=== PATIENT | male | born 1970 | race Caucasian/White ===

== ENCOUNTER 2017-10-14 17:15 | Emergency (ER) | payer MEDICARE, OTHER ==
[~2017-10-14] VITALS: Ht 182.9 cm; Wt 134.7 kg
[~2017-10-14 17:15] MED LIST: AMBIEN10 MG PO; ASPIRIN EC325 MG PO; ATENOLOL-CHLOR1 EAC1 PO; ATIVAN1 MG PO; ATORVASTATIN CA20 MG PO; CLOZAPINE100 MG PO; FAMOTIDINE20 MG PO; FENOFIBRATE134 MG PO; GLUCOPHAGE1000 MG PO; HUMULIN 70100 UNIT/3 SUB-Q; HYDROXYZINE HCL50 MG PO; JANUMET 50-1,01 EACH PO; JANUMET XR 50-1 EAC1 PO; LAMOTRIGINE25 MG PO; LATUDA80 MG PO; LIPITOR20 MG PO; LOSARTAN POTASS50 MG PO; LOVAZA1 GM PO; MINIPRESS1 MG PO; NICOTINE PATCH1 EA TD; NOVOLIN 70100 UNITS/ SUB-Q; NOVOLIN R100 UNIT/1 INJ; OMEGA-3 ACID ETH1 GM PO; PAIN RELIEF500 M1 PO; PRINIVIL10 MG PO; TRAZODONE HCL100 MG PO; VENTOLIN HFA18 GM INH; VITAMIN D250000 UNIT PO
[2017-10-14] MEDS ORDERED: TRULICITY1.5 MG/0.5 SUB-Q (17:36)
[2017-10-14] MEDS ORDERED: NOVOLOG MI100 UNIT/1 SUB-Q (17:38)
[2017-10-14] MEDS ORDERED: ARIPIPRAZOLE2 MG PO (17:40)
[2017-10-14] MEDS ORDERED: VITAMIN D350000 UNIT PO (17:41)
[2017-10-14] MEDS ORDERED: LOSARTAN POTASS50 MG PO (17:42)
[2017-10-14] MEDS ORDERED: DOCUSATE SODIU100 MG PO (17:43)
[2017-10-14] MEDS ORDERED: FLUVOXAMINE MA100 MG PO (17:44)
[2017-10-14] MEDS ORDERED: GLUCOPHAGE1000 MG PO (17:46)
[2017-10-14] MEDS ORDERED: FERROUS SULFAT325 MG PO (17:47)
[2017-10-14] MEDS ORDERED: ARIPIPRAZOLE5 MG PO (17:49)
[2017-10-14] MEDS ORDERED: CHLORTHALIDONE25 MG PO (17:51)
[2017-10-14] MEDS ORDERED: ATENOLOL25 MG PO (17:52)
== END 2017-10-14 19:55 | disposition home or self-care (01) ==
LOC: ED 17:15
DX: F20.9 Schizophrenia, unspecified (principal); E11.9 Type 2 diabetes mellitus without complications; I10 Essential (primary) hypertension; F17.200 Nicotine dependence, unspecified, uncomplicated; Z88.8 Allergy status to other drugs, medicaments and biological substances; Z79.4 Long term (current) use of insulin; Z79.899 Other long term (current) drug therapy
CPT/HCPCS: 80053; 80176; 81001; 84443; 85025; 99283; G0480

== ENCOUNTER 2018-06-25 19:07 | Emergency (ER) | payer MEDICARE, OTHER ==
[~2018-06-25] VITALS: Ht 182.9 cm; Wt 134.7 kg
[~2018-06-25 19:07] MED LIST changes: +ARIPIPRAZOLE2 MG PO; +ARIPIPRAZOLE5 MG PO; +ATENOLOL25 MG PO; +CHLORTHALIDONE25 MG PO; +DOCUSATE SODIU100 MG PO; +FERROUS SULFAT325 MG PO; +FLUVOXAMINE MA100 MG PO; +NOVOLOG MI100 UNIT/1 SUB-Q; +TRULICITY1.5 MG/0.5 SUB-Q; +VITAMIN D350000 UNIT PO
--- OUTSIDE RECORDS SUMMARY | 2018-06-25 19:10 | XMS ---
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 Events No recent Security Events currently on file CRITERIA MET - Group Notification - [facility] MAYELIN MARTINEZ [facility] PHONE: Unknown ANDRZEJ ENCINAS [facility] SHALONDA PHONE: Unknown Boo Patton MD PHONE: Unknown JOSE Mental Health Provider 07/01/2016-Current PHONE: [phone] DAVE HASSAN Primary Care 03/07/2013-Current PHONE: Unknown Guidelines Source: [facility] Guidelines Date: 02/03/2018 Additional Information: Enrolled in Assertive Community Treatment program with [employer].\T\nbs; Please contact Lesley Kyle @ [facility] regarding mental health concerns. [phone] Care History Behavioral 09/13/2017 [facility] Enrolled in the Assertive Community Treatment program at [facility].\T\nbsp; Contact Lesley Kyle with behavioral health concerns. [phone] E.D. VISIT COUNT (12 MO.) [address] [facility] [facility] TOTAL 5 NOTE: Visits indicate total known visits. ED/C VISIT TRACKING (12 MO.) 06/25/2018 19:08 [facility] [place] TYPE: Emergency COMPLAINT: - MEDICAL CLEARANCE 05/02/2018 15:10 [facility] [place] TYPE: Emergency DIAGNOSES: - Schizoaffective disorder, unspecified - MENTAL HEALTH 04/29/2018 09:16 [facility] [place] TYPE: Emergency DIAGNOSES: - SEIZURE - Personal history of other mental and behavioral disorders - Brief psychotic disorder 04/25/2018 18:08 [facility] [place] TYPE: Emergency COMPLAINT: - MEDICAL CLERANCE DIAGNOSES: - Other parts counterman (current) drug therapy - Allergy status to other drugs, medicaments and biological substances status - Essential (primary) hypertension - Personal history of nicotine dependence - parts counterman (current) use of insulin - Type 2 diabetes mellitus without complications - Encounter for other general examination - Schizoaffective disorder, unspecified 10/14/2017 17:[address] [facility] [place] TYPE: Emergency COMPLAINT: - MEDICAL CLEARANCE DIAGNOSES: - Nicotine dependence, unspecified, uncomplicated - Schizophrenia, unspecified - Other parts counterman (current) drug therapy - prison (current) use of insulin - Essential (primary) hypertension - Encounter for other general examination - Allergy status to other drugs, medicaments and biological substances status - Type 2 diabetes mellitus without complications INPATIENT VISIT TRACKING (12 MO.) No inpatient visits to display in this time frame [email or web address]
--- NOTE | 2018-06-26 13:56 | EKG ---
[facility] [address] [facility] [place] [address] Signed Normal sinus rhythm Left axis deviation Abnormal ECG When compared with ECG of 10-JUL-2016 11:02, Vent. rate has decreased BY [address] no longer depressed in Lateral leads Confirmed by STACEY GILLILAND MD ([id number]) on 06/26/2018 1:56:33 PM Electronically Signed By: STACEY GILLILAND MD 06/26/18 1356 PATIENT NAME: BRUNO HEBERT Electrocardiogram DATE OF : 74 PHYSICIAN: STACEY GILLILAND MD REPORT #: [id number] REPORT IS CONFIDENTIAL AND NOT TO BE RELEASED WITHOUT AUTHORIZATION
== END 2018-06-26 16:28 | disposition home or self-care (01) ==
LOC: ED 19:07
DX: Z00.8 Encounter for other general examination (principal); E11.9 Type 2 diabetes mellitus without complications; I10 Essential (primary) hypertension; F25.0 Schizoaffective disorder, bipolar type; F17.200 Nicotine dependence, unspecified, uncomplicated; Z88.8 Allergy status to other drugs, medicaments and biological substances; Z79.899 Other long term (current) drug therapy; Z79.4 Long term (current) use of insulin
CPT/HCPCS: 80053; 80176; 81001; 84443; 85025; 93005; 93010; 99284-25; G0480

== ENCOUNTER 2019-03-05 00:23 | Emergency (ER) | payer MEDICARE, OTHER ==
[~2019-03-05] VITALS: Ht 182.9 cm; Wt 134.7 kg
--- OUTSIDE RECORDS SUMMARY | ~2019-03-05 | XMS | Clinical Summary ---
Demographics + + + | Address | [address] | | | [place] [address] | + + + | Home Phone | | + + + | Preferred Language | Unknown | + + + | Marital Status | Single | + + + | Gnosticist Affiliation | Unknown | + + + | Race | Unknown | + + + | Ethnic Group | Unknown | + + + Author + + + | Author | [facility] | | | and [place] | + + + | Organization | [facility] | | | and [place] | + + + | Address | Unknown | + + + | Phone | Unavailable | + + + Support + + +---------+ + | Name | Relationship | Address | Phone | + + +---------+ + | Rachna Nur | ECON | Unknown | | + + +---------+ + Care Team Providers + +------+ + | Care Government Contracts Manager Name | Role | Phone | + +------+ + | Sara Olivo | PCP | | | PA-C | | | + +------+ + Allergies + + + + + + | Active Allergy | Reactions | Severity | Noted | Comments | | | | | Date | | + + + + + + | Amoxicillin | | | | | + + + + + + | Haloperidol | | | | Made me harjeetedenilsony | + + + + + + | Lisinopril | | | | | + + + + + + | [place] | | | | Made me scattered | + + + + + + | Olanzapine | | | | | + + + + + + | Quetiapine | | | | | + + + + + + | Valproic Acid | Rash | Medium | 12//20 | | | | | | 18 | | + + + + + + Medications + + + +---------+------+------+-------+ | Medication | Sig | Dispensed | Refills | Star | End | Statu | | | | | | t | Date | s | | | | | | Date | | | + + + +---------+------+------+-------+ | losartan (COZAAR) | Take 1 tablet by | 90 | 1 | 08/1 | | Activ | | 50 mg tablet | mouth Daily. | tablet | | 4/20 | | e | | | | | | 18 | | | + + + +---------+------+------+-------+ | ARIPiprazole | Take 10 mg by mouth | | 0 | | | Activ | | (ABILIFY) 10 mg | Daily. | | | | | e | | tablet | | | | | | | + + + +---------+------+------+-------+ | aspirin 81 MG EC | Take 81 mg by mouth | | 0 | | | Activ | | tablet | Daily. | | | | | e | + + + +---------+------+------+-------+ | atenolol | Take 50 mg by mouth | | 0 | | | Activ | | (TENORMIN) 50 mg | Daily. | | | | | e | | tablet | | | | | | | + + + +---------+------+------+-------+ | chlorthalidone 25 | Take 25 mg by mouth | | 0 | | | Activ | | mg tablet | Daily. | | | | | e | + + + +---------+------+------+-------+ | cloZAPine | Take 400 mg by mouth | | 0 | | | Activ | | (CLOZARIL) 200 MG | 2 times daily. 200 | | | | | e | | tablet | in AM 230 in PM | | | | | | + + + +---------+------+------+-------+ | fenofibrate | Take 160 mg by mouth | | 0 | | | Activ | | micronized (LOFIBRA) | daily (with | | | | | e | | 134 mg capsule | breakfast). | | | | | | + + + +---------+------+------+-------+ | fluvoxaMINE | Take 100 mg by mouth | | 0 | | | Activ | | (LUVOX) 100 mg | nightly. | | | | | e | | tablet | | | | | | | + + + +---------+------+------+-------+ | lamoTRIgine | Take 200 mg by mouth | | 0 | | | Activ | | (LAMICTAL) 100 mg | 2 times daily. | | | | | e | | tablet | | | | | | | + + + +---------+------+------+-------+ | metFORMIN | Take 1,000 mg by | | 0 | | | Activ | | (GLUCOPHAGE) 1000 MG | mouth 2 times daily | | | | | e | | tablet | (with breakfast & | | | | | | | | dinner). | | | | | | + + + +---------+------+------+-------+ | insulin - MIX | Inject 41 Units | | 0 | | | Activ | | insulin aspart | under the skin 2 | | | | | e | | protamine-insulin | times daily (with | | | | | | | aspart 70/30 | breakfast & dinner). | | | | | | | (NOVOLOG MIX 70/30 | | | | | | | | FLEXPEN) 100 | | | | | | | | units/mL PEN | | | | | | | + + + +---------+------+------+-------+ | RaNITidine HCl | Take 75 mg by mouth | | 0 | | | Activ | | (RANITIDINE 75 PO) | 2 times daily. | | | | | e | + + + +---------+------+------+-------+ | dulaglutide | Inject 1.5 mg under | | 0 | | | Activ | | (TRULICITY) 1.5 | the skin Once a | | | | | e | | mg/0.5 mL injection | week. | | | | | | + + + +---------+------+------+-------+ | ergocalciferol | Take 50,000 Units by | | 0 | | | Activ | | (VITAMIN D-2) 50,000 | mouth Once a week. | | | | | e | | units capsule | | | | | | | + + + +---------+------+------+-------+ | fish oil 1,000 mg | Take 2,000 mg by | | 0 | | | Activ | | capsule | mouth 2 times daily. | | | | | e | + + + +---------+------+------+-------+ | docusate sodium | Take 100 mg by mouth | | 0 | | | Activ | | (DOK) 100 mg capsule | 2 times daily. | | | | | e | + + + +---------+------+------+-------+ | Ascorbic Acid | Take 1 tablet by | | 0 | 01/2 | | Activ | | (VITAMIN C) 250 MG | mouth 2 times daily. | | | 820 | | e | | tablet | | | | 19 | | | + + + +---------+------+------+-------+ | mirtazapine | Take 30 mg by mouth | | 0 | | | Activ | | (REMERON) 15 MG | 2 times daily. | | | | | e | | tablet | | | | | | | + + + +---------+------+------+-------+ | ARIPiprazole | Inject 882 mg into | | 0 | | | Activ | | lauroxil (ARISTADA) | the muscle Once | | | | | e | | 882 mg/3.2 mL ER | every six weeks. | | | | | | | injection | | | | | | | + + + +---------+------+------+-------+ | LORazepam (ATIVAN) | Take 1 mg by mouth | | 0 | | | Activ | | 1 mg tablet | Twice daily as | | | | | e | | | needed. | | | | | | + + + +---------+------+------+-------+ | divalproex | Take 500 mg by mouth | | 0 | | | Activ | | (DEPAKOTE) [address] | 2 times daily. | | | | | e | | tablet | | | | | | | + + + +---------+------+------+-------+ | atorvaSTATin | Take 10 mg by mouth | | 0 | | | Activ | | (LIPITOR) 10 mg | nightly. 1 tablet | | | | | e | | tablet | every night | | | | | | + + + +---------+------+------+-------+ | ferrous sulfate | Take 325 mg by mouth | | 0 | 07/2 | | Activ | | 325 mg tablet | 2 times daily. | | | 3/20 | | e | | | | | | 18 | | | + + + +---------+------+------+-------+ | lamoTRIgine | Take 25 mg by mouth | | 0 | | | Activ | | (LAMICTAL) 25 mg | nightly as needed. | | | | | e | | tablet | | | | | | | + + + +---------+------+------+-------+ Active Problems + + + | Problem | Noted Date | + + + | Coronary artery disease involving [place] coronary artery of | 06/22/2018 | | [place] heart without angina pectoris | | + + + + + | Overview: CUSTOMER ACCOUNT COORDINATOR RCA | | CUSTOMER ACCOUNT COORDINATOR distal Cx. Severe stenosis OM 1 | + + + + + | LAFB (left anterior fascicular block) | 06/22/2018 | + + + | Uncontrolled type 2 diabetes mellitus with complication | | + + + | Hyperlipidemia, mixed | | + + + | Hypertension, essential | | + + + | Vitamin D deficiency | | + + + | Hypogonadism, male | | + + + | Hyponatremia | | + + + | Morbid obesity | | + + + | Sleep apnea | | + + + | Elevated AST (SGOT) | | + + + | Diabetic nephropathy | | + + + | Chest pain | | + + + + + | Overview: Stress test 03/14/2018 shows modest ischemia | | associated with a small infarct in the inferior wall, EKG portion | | of Lexiscan cardiolite stress test with no diagnostic EKG | | finding to suggest Lexiscan-induced ischemia. Neymar Gutierrez | | .Left heart cath on 04/06/2018, shows severe 2 vessel coronary | | artery disease, chronic total occlusion to the proximal RCA and | | proximal LCx, and 90% stenosis to the proximal OM, | | collateralization; evidence of a ypsh-yw-cxbun collateralization | | from the distal LAD to the distal PDA, there is a right dominate | | circulation, normal LV systolic function with an EF of 70%, | | systemic blood pressure is normal, there was successful | | hemostasis with a TR hemostatic band, plan is Coronary | | revascularization with PCI, case was discussed with Dr. Oates | | Huy, interventionalists at [facility] in [place], | | [place], Signed by: Sneha Carson MD on | | 04/06/2018Echocardiogram on 04/04/2018, shows mild left atrial | | dilatation, normal left ventricular size, wall thickness and | | motion, preserved left ventricular systolic function, LVEF is | | 55%, normal valvular structure with a physiologic mild mitral | | valve regurgitation and trace tricuspid valve regurgitation, | | normal right-sided pressure, not well-visualized IVC, mild aortic | | root dilatation measuring 4.0 cm in diameter signed by Sneha | | Alli KHAN. | + + Immunizations + + + + | Name | Dates Previously Given | Next Due | + + + + | HEP A, 2 DOSE | 09/08/2016 | | | (ADULT) | | | + + + + | HEP B, 3 DOSE | 10/06/2016, 09/08/2016 | | | (ADULT) | | | + + + + | INFLUENZA PF 4Y OR | 01/19/2017 | | | >,QUAD DERIVED FROM | | | | TISS-CULT | | | + + + + | INFLUENZA PF | 04/14/2018 | | | QUAD(PED/ADOL/ADULT) | | | | ,PSKT or VIAL | | | + + + + | INFLUENZA TRIV | 02/07/2007, 03/11/2006, 03/24/2005 | | | W/PRES(PED/ADOL/ADUL | | | | T),MULTIDOSE | | | + + + + | INFLUENZA, | 03/10/2010 | | | UNSPECIFIED | | | | FORMULATION | | | + + + + | PNEUMOCOCCAL | 01/20/2009, 04/29/2005 | | | POLYSACCHARIDE | | | | 23-VALENT (PPSV23) | | | + + + + | PPD Test | 09/08/2016 | | + + + + | TDAP, (ADOL/ADULT) | 10/29/2014, 09/14/2005 | | + + + + Family History + + +------+ + | Medical History | Relation | Name | Comments | + + +------+ + | Brain cancer | Other | | | + + +------+ + | Heart disease | Other | | | + + +------+ + | Stroke | Other | | | + + +------+ + + +------+--------+ + | Relation | Name | Status | Comments | + +------+--------+ + | Other | | | | + +------+--------+ + Social History + + + +--------+------+ | Tobacco Use | Types | Packs/Day | Years | Date | | | | | Used | | + + + +--------+------+ | Current Every Day | Cigarettes | | | | | Smoker | | | | | + + + +--------+------+ + +---+---+---+ | Smokeless Tobacco: | | | | | Never Used | | | | + +---+---+---+ + + | Comments: 10-15 ciggattes a day | + + + + +---------+ + | Alcohol Use | Drinks/We | oz/Week | Comments | | | ek | | | + + +---------+ + | No | | | | + + +---------+ + + + + | Sex Assigned at | Date Recorded | | | | + + + | Not on file | | + + + + + + + | Job Start Date | Occupation | Industry | + + + + | Not on file | Not on file | Not on file | + + + + + + + + | Travel History | Travel Start | Travel End | + + + + + + | No recent travel history available. | + + Last Filed Vital Signs + + + + | Vital Sign | Reading | Time Taken | + + + + | Blood Pressure | 110/80 | 11/16/2018939 PDT | + + + + | Pulse | 72 | 11/16/2018939 PDT | + + + + | Temperature | 36.4 C (97.5 F) | 04/06/2018 1101 PST | + + + + | Respiratory Rate | 16 | 11/16/2018939 PDT | + + + + | Oxygen Saturation | 100% | 04/06/20181314 PST | + + + + | Inhaled Oxygen | - | - | | Concentration | | | + + + + | Weight | 140.5 kg (309 lb | 11/16/2018939 PDT | | | 11.9 oz) | | + + + + | Height | 180.3 cm (5' 11") | 11/16/2018939 PDT | + + + + | Body Mass Index | 43.2 | 11/16/2018939 PDT | + + + + Plan of Treatment +--------+---------+ + + + | Date | Type | Specialty | Care Team | Description | +--------+---------+ + + + | 03/23/ | Office | Cardiology | [place], | | | 2018 | Visit | | [facility] [address] | | | | | | [place], | | | | | | [place] [address] | | | | | | [phone] | | | | | | | | +--------+---------+ + + + + + + + + | Health Maintenance | Due Date | Last Done | Comments | + + + + + | Diabetic Eye Exam | | | | | | 0 | | | + + + + + | Diabetic Foot Exam | | | | | | 0 | | | + + + + + | Adult Annual | | | | | Wellness Visit | 8 | | | + + + + + | Statin Therapy | | | | | (optimal intensity) | 8 | | | + + + + + | Hemoglobin A1c | | 07/18/2018 | | | Screening | 9 | | | + + + + + | Vaccine: Influenza | | 04/14/2018, 01/19/2017, | | | (#1) | 9 | 03/10/2010, Additional history | | | | | exists | | + + + + + | Vaccine: | | 10/29/2014, 09/14/2005 | | | Dtap/Tdap/Td (3 - | 5 | | | | Td) | | | | + + + + + | Vaccine: | Completed | 01/20/2009, 04/29/2005 | | | Pneumococcal 19-64 | | | | | (PPSV23 only) Medium | | | | | Risk | | | | + + + + + Results Not on filefrom Last 3 Months Insurance + +--------+ +--------+ +---------+--------+ | Payer | Benefi | Subscriber | Effect | Phone | Address | Type | | | t Plan | ID | meghan | | | | | | / | | Dates | | | | | | Group | | | | | | + +--------+ +--------+ +---------+--------+ | MEDICARE | MEDICA | [id number] | 01/01/19 | [phone] | | Medica | | | RE | | 95-Pre | 5 | | re | | | PART A | | sent | | | | | | AND B | | | | | | + +--------+ +--------+ +---------+--------+ | [employer] | MODA | [id number] | 03/22/ | [phone] | | Medica | | MEDICAID HMO | HEALTH | | 2018-P | 1 | | id | | | MDCD | | resent | | | | | | [place]MO [place] | | | | | | + +--------+ +--------+ +---------+--------+ + +--------+ +--------+ + + | Guarantor Name | Accoun | Relation to | Date | Phone | Billing Address | | | t Type | Patient | of | | | | | | | | | | + +--------+ +--------+ + + | Jose Correa | Person | Self [birth year] | [address] | | | al/Fam | | 1970 | [phone] | [address] [place], | | | [place] | | | [address] (Home) | [place] [address] | + +--------+ +--------+ + + Advance Directives Patient has advance care planning documents on file. For more information, please contact:[facility] [place] [address]
--- OUTSIDE RECORDS SUMMARY | ~2019-03-05 | XMS | Clinical Summary ---
Demographics + + + | Address | [address] | | | [place] [address] | + + + | Home Phone | | + + + | Preferred Language | Unknown | + + + | Marital Status | Single | + + + | Samaritan Affiliation | Unknown | + + + | Race | Unknown | + + + | Ethnic Group | Unknown | + + + Author + + + | Author | [facility] | | | and [place] | + + + | Organization | [facility] | | | and [...] Team Providers + +------+ + | Care Inside Account Executive Name | Role | Phone | + [...] + + + + + + | [place] | | | | Made me scattered [...] + + | Coronary artery disease involving [place] coronary artery of | 06/22/2018 | | [place] heart without angina pectoris | | + + + + + | Overview: BIN PILER RCA | | BIN PILER distal Cx. Severe stenosis OM 1 | [...] OM, | | collateralization; evidence of a guyz-av-krnev collateralization | | from the distal LAD [...] Dr. Oates | | Huy, interventionalists at [facility] in [place], | | [place], Signed by: Sneha Carson MD on | [...] | 2018 | Visit | | [facility] [address] | | | | | | [place], | | | | | | [place] [address] | | | | | | [phone] | | | | | | | [...] +--------+ +---------+--------+ | MEDICARE | MEDICA | [id number] | 01/01/19 | [phone] | | Medica | | | RE | | 95-Pre | 5 | | re | | | PART A | | sent | | | | | | AND B | | | | | | + +--------+ +--------+ +---------+--------+ | [employer]AN | MODA | [id number] | 03/22/ | [phone] | | Medica [...] Self | [birth year] | [address] | | | al/Fam | | 1970 | [phone] | [address] [place], | | | [place] | | | [address] (Home) | [place] [address] | + +--------+ +--------+ + + Advance Directives Patient has advance care planning documents on file. For more information, please contact:[facility] and [facility] [place] [address]
--- OUTSIDE RECORDS SUMMARY | 2019-03-05 00:26 | XMS ---
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 PHONE: Unknown ANDRZEJ ENCINAS [facility] Noreen LIZ PHONE: Unknown Boo Patton MD PHONE: Unknown [facility] Mental Health Provider 07/01/2016-Current PHONE: [phone] DAVE HASSAN Primary Care 03/07/2013-Current PHONE: Unknown Guidelines Source: [facility] Guidelines Date: 02/03/2018 Additional Information: Enrolled in Assertive Community Treatment program with [facility].\T\nbs; Please contact Lesley Kyle @ [facility] regarding mental health concerns. [phone] Care History Behavioral 09/13/2017 [facility] Enrolled in the Assertive Community Treatment program at [facility].\T\nbsp; Contact Lesley Kyle with behavioral health concerns. [phone] E.D. VISIT COUNT (12 MO.) [address] [place] TOTAL 5 NOTE: Visits indicate total known visits. ED/UCC VISIT TRACKING (12 MO.) 03/05/2019 00:24 [facility] [place] TYPE: Emergency COMPLAINT: - MEDICATION ISSUES 06/25/2018 19:08 [facility] [place] TYPE: Emergency COMPLAINT: - MEDICAL CLEARANCE DIAGNOSES: - 1 Type 2 diabetes mellitus without complications - Nicotine dependence, unspecified, uncomplicated - Encounter for other general examination - Other care home (current) drug therapy - jail (current) use of insulin - Essential (primary) hypertension - Allergy status to oth drug/meds/biol subst status - Schizoaffective disorder, bipolar type 05/02/2018 15:10 [facility] [place] TYPE: Emergency DIAGNOSES: - Schizoaffective disorder, unspecified - MENTAL HEALTH 04/29/2018 09:16 [facility] [place] TYPE: Emergency DIAGNOSES: - SEIZURE - Personal history of other mental and behavioral disorders - Brief psychotic disorder 04/25/2018 18:08 [facility] [place] TYPE: Emergency COMPLAINT: - MEDICAL CLERANCE DIAGNOSES: - Other care home (current) drug therapy - Allergy status to oth drug/meds/biol subst status - Essential (primary) hypertension - Personal history of nicotine dependence - jail (current) use of insulin - 1 Type 2 diabetes mellitus without complications - Encounter for other general examination - Schizoaffective disorder, unspecified INPATIENT VISIT TRACKING (12 MO.) No inpatient visits to display in this time frame [id number]
== END 2019-03-05 13:54 | disposition home or self-care (01) ==
LOC: ED 00:23
DX: R45.1 Restlessness and agitation (principal); E11.9 Type 2 diabetes mellitus without complications; I10 Essential (primary) hypertension; F25.9 Schizoaffective disorder, unspecified; Z88.8 Allergy status to other drugs, medicaments and biological substances; Z79.899 Other long term (current) drug therapy; Z79.4 Long term (current) use of insulin
CPT/HCPCS: 80053; 80176; 81001; 84443; 85025; 99284; G0480; J1815

== ENCOUNTER 2019-05-26 12:41 | Emergency (ER) | payer MEDICARE, OTHER ==
[~2019-05-26] VITALS: Ht 182.9 cm; Wt 134.7 kg
--- OUTSIDE RECORDS SUMMARY | 2019-05-26 12:44 | XMS ---
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 Events No recent Security Events currently on file CRITERIA MET - Group Notification - [facility] Guidelines - [facility] JERMAINE CONTRERAS Physician 06/28/2018-Current PHONE: [phone] MAYELIN [facility] PHONE: Unknown ANDRZEJ ENCINAS [facility] Noreen LIZ PHONE: Unknown Boo Patton MD PHONE: Unknown [facility] Mental Health Provider 07/01/2016-Current PHONE: [phone] DAVE HASSAN Primary Care 03/07/2013-Current PHONE: Unknown Guidelines Source: [facility] Guidelines Date: 02/03/2018 Additional Information: Enrolled in Assertive Community Treatment program with [facility].\T\nbs; Please contact Lesley Kyle @ [facility] regarding mental health concerns. [phone] Care History Behavioral 09/13/2017 [facility] Enrolled in the Assertive Community Treatment program at [facility].\T\nbsp; Contact Lesley Kyle with behavioral health concerns. [phone] E.D. VISIT COUNT (12 MO.) 3 [facility] [place] TOTAL 3 NOTE: Visits indicate total known visits. ED/UCC VISIT TRACKING (12 MO.) 05/26/2019 12:41 [facility] [place] TYPE: Emergency COMPLAINT: - HIGH BLOOD SUGAR 03/05/2019 00:24 [facility] [place] TYPE: Emergency COMPLAINT: - MEDICATION ISSUES DIAGNOSES: - Allergy status to oth drug/meds/biol subst status - Essential (primary) hypertension - 1 Type 2 diabetes mellitus without complications - Other fdc (current) drug therapy - Restlessness and agitation - Schizoaffective disorder, unspecified - parts counterman (current) use of insulin 06/25/2018 19:[address] [facility] [place] TYPE: Emergency COMPLAINT: - MEDICAL CLEARANCE DIAGNOSES: - 1 Type 2 diabetes mellitus without complications - Nicotine dependence, unspecified, uncomplicated - Encounter for other general examination - Other parts counterman (current) drug therapy - senior care (current) use of insulin - Essential (primary) hypertension - Allergy status to oth drug/meds/biol subst status - Schizoaffective disorder, bipolar type INPATIENT VISIT TRACKING (12 MO.) No inpatient visits to display in this time frame [email or web address]
[2019-05-26] MEDS ORDERED: LACTULOSE10 GM/15 M PO (14:19)
== END 2019-05-26 14:39 | disposition home or self-care (01) ==
LOC: ED 12:41
DX: E11.65 Type 2 diabetes mellitus with hyperglycemia (principal); E72.20 Disorder of urea cycle metabolism, unspecified; I10 Essential (primary) hypertension; F25.9 Schizoaffective disorder, unspecified; F17.200 Nicotine dependence, unspecified, uncomplicated; Z88.8 Allergy status to other drugs, medicaments and biological substances; Z79.899 Other long term (current) drug therapy; Z79.84 Long term (current) use of oral hypoglycemic drugs
CPT/HCPCS: 80053; 82140; 85025; 85610; 85730; 99284; J7030

== ENCOUNTER 2019-06-10 08:18 | Emergency (ER) | payer MEDICARE, OTHER ==
[~2019-06-10] VITALS: Ht 182.9 cm; Wt 127.0 kg
[~2019-06-10 08:18] MED LIST changes: +LACTULOSE10 GM/15 M PO
--- OUTSIDE RECORDS SUMMARY | 2019-06-10 08:20 | XMS ---
PreManage Notification: BRUNO HEBERT Security Seat Nailer Events No recent Security Events currently on file CRITERIA MET - Group Notification - [facility] - Has Care Guidelines - PDMP - [facility] - 2 Visits in 30 Days CARE PROVIDERS JERMAINE CONTRERAS 06/28/2018-Current PHONE: [phone] MAYELIN LONDON Primary Care Current KATE PHONE: Unknown ANDRZEJ ENCINAS Primary Care Noreen LIZ PHONE: Unknown Boo Patton MD PHONE: Unknown [facility] Mental Health Provider 07/01/2016-Current PHONE: [phone] DAVE HASSAN Primary Care 03/07/2013-Current PHONE: Unknown Guidelines Source: [facility] Guidelines Date: 05/29/2019 Additional Information: Enrolled in Assertive Community Treatment program with [facility].\T\[facility]; Please contact [facility] regarding mental health concerns. [place] Office:\T\nbsp; Care History Behavioral 09/13/2017 [facility] Enrolled in the Assertive Community Treatment program at [facility].\T\[facility]; Contact Lesley Kyle with behavioral health concerns. [phone] E.Michael. VISIT COUNT (12 MO.) [address] [facility] TOTAL 4 NOTE: Visits indicate total known visits. ED/UCC VISIT TRACKING (12 MO.) 06/10/2019 08:19 [facility] [place] TYPE: Emergency COMPLAINT: - POSS HEART ATTACK 05/26/2019 12:41 [facility] [place] TYPE: Emergency COMPLAINT: - HIGH BLOOD SUGAR DIAGNOSES: - Disorder of urea cycle metabolism, unspecified - 1 Type 2 diabetes mellitus with hyperglycemia - Other terminal gauger (current) drug therapy - 1 Type 2 diabetes mellitus with hyperglycemia - Schizoaffective disorder, unspecified - Disorientation, unspecified - Allergy status to oth drug/meds/biol subst status - Essential (primary) hypertension - Nicotine dependence, unspecified, uncomplicated - custodial (current) use of oral hypoglycemic drugs 03/05/2019 00:24 [facility] [place] TYPE: Emergency COMPLAINT: - MEDICATION ISSUES DIAGNOSES: - Allergy status to oth drug/meds/biol subst status - Essential (primary) hypertension - 1 Type 2 diabetes mellitus without complications - Other terminal gauger (current) drug therapy - Restlessness and agitation - Schizoaffective disorder, unspecified - exterminator termite (current) use of insulin 06/25/2018 19:08 [facility] [place] TYPE: Emergency COMPLAINT: - MEDICAL CLEARANCE DIAGNOSES: - 1 Type 2 diabetes mellitus without complications - Nicotine dependence, unspecified, uncomplicated - Encounter for other general examination - Other terminal gauger (current) drug therapy - custodial (current) use of insulin - Essential (primary) hypertension - Allergy status to oth drug/meds/biol subst status - Schizoaffective disorder, bipolar type INPATIENT VISIT TRACKING (12 MO.) No inpatient visits to display in this time frame [id number]
[2019-06-10] MEDS ORDERED: HYDROXYZINE HCL25 MG PO (10:34)
--- NOTE | 2019-06-10 18:22 | EKG ---
[facility] [address] [place], [place] [address] Signed Normal sinus rhythm Left axis deviation Abnormal ECG When compared with ECG of 25-JUN-2018 20:31, No significant change was found Confirmed by BECKY ACUÑA MD ([id number]) on 06/10/2019 6:22:47 PM Electronically Signed By: BECKY ACUÑA MD 06/10/191821 PATIENT NAME: ANUPBRUNO Electrocardiogram DATE OF : 74 PHYSICIAN: BECKY ACUÑA MD REPORT #: [id number] REPORT IS CONFIDENTIAL AND NOT TO BE RELEASED WITHOUT AUTHORIZATION
== END 2019-06-10 10:56 | disposition home or self-care (01) ==
LOC: ED 08:18
DX: F41.9 Anxiety disorder, unspecified (principal); F25.9 Schizoaffective disorder, unspecified; E11.9 Type 2 diabetes mellitus without complications; I10 Essential (primary) hypertension; F17.200 Nicotine dependence, unspecified, uncomplicated; Z88.8 Allergy status to other drugs, medicaments and biological substances; Z79.899 Other long term (current) drug therapy; Z79.84 Long term (current) use of oral hypoglycemic drugs
CPT/HCPCS: 80053; 84484; 85025; 93005; 93010; 99285-25; 99406; J7030

== ENCOUNTER 2019-06-15 04:04 | Emergency (ER) | payer MEDICARE, OTHER ==
[~2019-06-15] VITALS: Ht 182.9 cm; Wt 127.0 kg
[~2019-06-15 04:04] MED LIST changes: +HYDROXYZINE HCL25 MG PO
--- OUTSIDE RECORDS SUMMARY | 2019-06-15 04:06 | XMS ---
PreManage Notification: BRUNO HEBERT Security Sawmill Tally Clerk Events No recent Security Events currently on file CRITERIA MET - Group Notification - [facility] - Has Care Guidelines - PDMP - [facility] - 2 Visits in 30 Days CARE PROVIDERS JERMAINE CONTRERAS 06/28/2018-Current PHONE: [phone] MAYELIN MEDRANO Primary Care [facility] PHONE: Unknown ANDRZEJ ENCINAS Primary Care Noreen LIZ PHONE: Unknown Boo Patton MD PHONE: Unknown [facility] Mental Health Provider 07/01/2016-Current PHONE: [phone] DAVE HASSAN Primary Care 03/07/2013-Current PHONE: Unknown Guidelines Source: [facility] Guidelines Date: 05/29/2019 Additional Information: [facility]; [facility] concerns. [place] Office:\T\nbsp; Care History Behavioral 09/13/2017 [facility] Enrolled in the Assertive Community Treatment program at [facility]T\[facility]; Contact Lesley Kyle with behavioral health concerns. [phone] E.D. VISIT COUNT (12 MO.) 5 FRANCHESKA Otto TOTAL 5 NOTE: Visits indicate total known visits. ED/UCC VISIT TRACKING (12 MO.) 06/15/2019 04:04 [facility] Figuero[facility] [place] TYPE: Emergency COMPLAINT: - ANXIETY 06/10/2019 08:19 [facility] [place] TYPE: Emergency COMPLAINT: - POSS HEART ATTACK DIAGNOSES: - Nicotine dependence, unspecified, uncomplicated - Essential (primary) hypertension - Anxiety disorder, unspecified - Other emt intermediate (current) drug therapy - Allergy status to oth drug/meds/biol subst status - Schizoaffective disorder, unspecified - 1 Type 2 diabetes mellitus without complications - retirement (current) use of oral hypoglycemic drugs 05/26/2019 12:41 [facility] [place] TYPE: Emergency COMPLAINT: - HIGH BLOOD SUGAR DIAGNOSES: - Disorder of urea cycle metabolism, unspecified - 1 Type 2 diabetes mellitus with hyperglycemia - Other emt intermediate (current) drug therapy - 1 Type 2 diabetes mellitus with hyperglycemia - Schizoaffective disorder, unspecified - Disorientation, unspecified - Allergy status to oth drug/meds/biol subst status - Essential (primary) hypertension - Nicotine dependence, unspecified, uncomplicated - long term acute care registered nurse (current) use of oral hypoglycemic drugs 03/05/2019 00:24 [facility] [place] TYPE: Emergency COMPLAINT: - MEDICATION ISSUES DIAGNOSES: - Allergy status to oth drug/meds/biol subst status - Essential (primary) hypertension - 1 Type 2 diabetes mellitus without complications - Other emt intermediate (current) drug therapy - Restlessness and agitation - Schizoaffective disorder, unspecified - long term acute care registered nurse (current) use of insulin 06/25/2018 19:08 [facility] [place] TYPE: Emergency COMPLAINT: - MEDICAL CLEARANCE DIAGNOSES: - 1 Type 2 diabetes mellitus without complications - Nicotine dependence, unspecified, uncomplicated - Encounter for other general examination - Other residential (current) drug therapy - retirement (current) use of insulin - Essential (primary) hypertension - Allergy status to oth drug/meds/biol subst status - Schizoaffective disorder, bipolar type INPATIENT VISIT TRACKING (12 MO.) No inpatient visits to display in this time frame [id number]
--- NOTE | 2019-06-16 17:08 | EKG ---
[facility] [address] [place] [address] Signed Normal sinus rhythm Left axis deviation Abnormal ECG When compared with ECG of 10-JUN-2019 08:14, No significant change was found Confirmed by STACEY GILLILAND MD ([id number]) on 06/16/2019 5:07:59 PM Electronically Signed By: STACEY GILLILAND MD 06/16/19 1708 PATIENT NAME: BRUNO HEBERT Electrocardiogram DATE OF : 74 PHYSICIAN: TSACEY GILLILAND MD REPORT #: [id number] REPORT IS CONFIDENTIAL AND NOT TO BE RELEASED WITHOUT AUTHORIZATION
== END 2019-06-15 07:00 | disposition short-term general hospital (02) ==
LOC: ED 04:04
DX: F29 Unspecified psychosis not due to a substance or known physiological condition (principal); E11.9 Type 2 diabetes mellitus without complications; I10 Essential (primary) hypertension; Z79.899 Other long term (current) drug therapy
CPT/HCPCS: 80053; 84484; 85025; 93005; 93010; 99285-25

== ENCOUNTER 2019-06-15 08:04 | Emergency (ER) | payer MEDICARE, OTHER ==
[~2019-06-15] VITALS: Ht 182.9 cm; Wt 127.0 kg
--- OUTSIDE RECORDS SUMMARY | 2019-06-15 10:34 | XMS ---
PreManage Notification: BRUNO HEBERT Security Pillow Filler Events No recent Security Events currently on file CRITERIA MET - Group Notification - [facility] - Has Care Guidelines - PDMP - [facility] - 2 Visits in 30 Days CARE PROVIDERS JERMAINE CONTRERAS 06/28/2018-Current PHONE: [phone] MAYELIN LONDON Primary Care Current KATE PHONE: Unknown ANDRZEJ ENCINAS Primary Care Noreen LIZ PHONE: Unknown Boo Patton MD PHONE: Unknown [facility] [place] Mental Health Provider 07/01/2016-Current PHONE: [phone] DAVE HASSAN Primary Care 03/07/2013-Current PHONE: Unknown Guidelines Source: [facility] Guidelines Date: 05/29/2019 Additional Information: Enrolled in Assertive Community Treatment program with [employer]; Please contact [employer] regarding mental health concerns. [place] Office:\T\[facility]; [phone] Care History Behavioral 09/13/2017 [facility] Enrolled in the Assertive Community Treatment program at [facility].\T\[facility]; Contact Chapito Gr\T\[facility]; with behavioral health concerns. Crisis Line Office [phone] E.D. VISIT COUNT (12 MO.) 6 FRANCHESKA Otto TOTAL 6 NOTE: Visits indicate total known visits. ED/UCC VISIT TRACKING (12 MO.) 06/15/2019 08:05 [facility] Figueroa [place] TYPE: Emergency COMPLAINT: - MEDICAL CLEARANCE 06/15/2019 04:04 [facility] Figuero[facility] [place] TYPE: Emergency COMPLAINT: - ANXIETY 06/10/2019 08:19 [facility] Figuero[facility] [place] TYPE: Emergency COMPLAINT: - POSS HEART ATTACK DIAGNOSES: - Nicotine dependence, unspecified, uncomplicated - Essential (primary) hypertension - Anxiety disorder, unspecified - Other lobsterman (current) drug therapy - Allergy status to oth drug/meds/biol subst status - Schizoaffective disorder, unspecified - 1 Type 2 diabetes mellitus without complications - USP (current) use of oral hypoglycemic drugs 05/26/2019 12:41 [facility] Figueroa [place] TYPE: Emergency COMPLAINT: - HIGH BLOOD SUGAR DIAGNOSES: - Disorder of urea cycle metabolism, unspecified - 1 Type 2 diabetes mellitus with hyperglycemia - Other fdc (current) drug therapy - 1 Type 2 diabetes mellitus with hyperglycemia - Schizoaffective disorder, unspecified - Disorientation, unspecified - Allergy status to oth drug/meds/biol subst status - Essential (primary) hypertension - Nicotine dependence, unspecified, uncomplicated - USP (current) use of oral hypoglycemic drugs 03/05/2019 00:24 [facility]uero[facility] [place] TYPE: Emergency COMPLAINT: - MEDICATION ISSUES DIAGNOSES: - Allergy status to oth drug/meds/biol subst status - Essential (primary) hypertension - 1 Type 2 diabetes mellitus without complications - Other lobsterman (current) drug therapy - Restlessness and agitation - Schizoaffective disorder, unspecified - USP (current) use of insulin 06/25/2018 19:[address] [facility] [place] TYPE: Emergency COMPLAINT: - MEDICAL CLEARANCE DIAGNOSES: - 1 Type 2 diabetes mellitus without complications - Nicotine dependence, unspecified, uncomplicated - Encounter for other general examination - Other fdc (current) drug therapy - USP (current) use of insulin - Essential (primary) hypertension - Allergy status to oth drug/meds/biol subst status - Schizoaffective disorder, bipolar type INPATIENT VISIT TRACKING (12 MO.) No inpatient visits to display in this time frame [id number]
== END 2019-06-15 10:33 | disposition home or self-care (01) ==
LOC: ED 08:04
DX: F25.9 Schizoaffective disorder, unspecified (principal); E11.9 Type 2 diabetes mellitus without complications; I10 Essential (primary) hypertension; F17.200 Nicotine dependence, unspecified, uncomplicated; Z79.4 Long term (current) use of insulin; Z79.899 Other long term (current) drug therapy
CPT/HCPCS: 99284

== ENCOUNTER 2019-06-24 11:16 | Emergency (ER) | payer MEDICARE, OTHER ==
[~2019-06-24] VITALS: Ht 182.9 cm; Wt 127.0 kg
--- OUTSIDE RECORDS SUMMARY | 2019-06-24 11:20 | XMS ---
PreManage Notification: BRUNO HEBERT Security Client Manager Large Law Events No recent Security Events currently on file CRITERIA MET - Group Notification - 6 ED Visits in 6 Months - [facility] - Has Care Guidelines - PDMP - [facility] - 2 Visits in 30 Days CARE PROVIDERS JERMAINE CONTRERAS 06/28/2018-Current PHONE: [phone] MAYELIN MARTINEZ Primary [facility] PHONE: Unknown ANDRZEJ ENCINAS Primary [facility] Noreen LIZ PHONE: Unknown Boo Patton MD PHONE: Unknown [facility] Mental Health Provider 07/01/2016-Current PHONE: [phone] DAVE HASSAN Primary Care 03/07/2013-Current PHONE: Unknown Guidelines Source: [facility] [place] Guidelines Date: 06/15/2019 Additional Information: Enrolled in Assertive Community Treatment program with [employer].\T\nbsp; Please contact [employer] regarding mental health concerns. [place] Office:\T\nbsp; Office [phone]\T\nbsp; Crisis [phone] Care History Behavioral 09/13/2017 [facility] Enrolled in the Assertive Community Treatment program at [facility] [place].\T\nbsp; Contact Chapito Gr\T\nbsp; with behavioral health concerns. Crisis Line [phone] Office [phone] E.D. VISIT COUNT (12 MO.) 7 FRANCHESKA Otto TOTAL 7 NOTE: Visits indicate total known visits. ED/UCC VISIT TRACKING (12 MO.) 06/24/2019 11:18 [facility] Figueroa [place] TYPE: Emergency COMPLAINT: - MEDICAL CLEARANCE 06/15/2019 08:05 [facility] Figueroa [place] TYPE: Emergency COMPLAINT: - MEDICAL CLEARANCE DIAGNOSES: - Nicotine dependence, unspecified, uncomplicated - 1 Type 2 diabetes mellitus without complications - Essential (primary) hypertension - shelter (current) use of insulin - Other fci (current) drug therapy - Schizoaffective disorder, unspecified - Schizoaffective disorder, unspecified 06/15/2019 04:04 [facility] Figuero[facility] [place] TYPE: Emergency COMPLAINT: - ANXIETY DIAGNOSES: - Other fci (current) drug therapy - Unsp psychosis not due to a substance or known physiol cond - Chest pain, unspecified - 1 Type 2 diabetes mellitus without complications - Essential (primary) hypertension 06/10/2019 08:19 [facility] Figueroa [place] TYPE: Emergency COMPLAINT: - POSS HEART ATTACK DIAGNOSES: - Nicotine dependence, cigarettes, uncomplicated - Nicotine dependence, unspecified, uncomplicated - Essential (primary) hypertension - Anxiety disorder, unspecified - Other fci (current) drug therapy - Allergy status to oth drug/meds/biol subst status - Schizoaffective disorder, unspecified - 1 Type 2 diabetes mellitus without complications - terminal clerk (current) use of oral hypoglycemic drugs 05/26/2019 12:41 [facility] Figueroa [place] TYPE: Emergency COMPLAINT: - HIGH BLOOD SUGAR DIAGNOSES: - Disorder of urea cycle metabolism, unspecified - 1 Type 2 diabetes mellitus with hyperglycemia - Other fci (current) drug therapy - 1 Type 2 diabetes mellitus with hyperglycemia - Schizoaffective disorder, unspecified - Disorientation, unspecified - Allergy status to oth drug/meds/biol subst status - Essential (primary) hypertension - Nicotine dependence, unspecified, uncomplicated - shelter (current) use of oral hypoglycemic drugs 03/05/2019 00:24 [facility] Figueroa [place] TYPE: Emergency COMPLAINT: - MEDICATION ISSUES DIAGNOSES: - Allergy status to oth drug/meds/biol subst status - Essential (primary) hypertension - 1 Type 2 diabetes mellitus without complications - Other oil heaterman (current) drug therapy - Restlessness and agitation - Schizoaffective disorder, unspecified - shelter (current) use of insulin 06/25/2018 19:08 [facility] Figueroa [place] TYPE: Emergency COMPLAINT: - MEDICAL CLEARANCE DIAGNOSES: - 1 Type 2 diabetes mellitus without complications - Nicotine dependence, unspecified, uncomplicated - Encounter for other general examination - Other oil heaterman (current) drug therapy - shelter (current) use of insulin - Essential (primary) hypertension - Allergy status to oth drug/meds/biol subst status - Schizoaffective disorder, bipolar type INPATIENT VISIT TRACKING (12 MO.) No inpatient visits to display in this time frame [id number]
== END 2019-06-24 13:35 | disposition home or self-care (01) ==
LOC: ED 11:16
DX: F25.9 Schizoaffective disorder, unspecified (principal); E11.9 Type 2 diabetes mellitus without complications; Z91.19 Patient's noncompliance with other medical treatment and regimen; I10 Essential (primary) hypertension; F17.200 Nicotine dependence, unspecified, uncomplicated; Z88.8 Allergy status to other drugs, medicaments and biological substances; Z79.899 Other long term (current) drug therapy; Z79.4 Long term (current) use of insulin
CPT/HCPCS: 99284; J1815

== ENCOUNTER 2019-07-31 06:33 | Emergency (ER) | payer MEDICARE, OTHER ==
[~2019-07-31] VITALS: Ht 180.3 cm; Wt 131.5 kg
--- OUTSIDE RECORDS SUMMARY | 2019-07-31 06:36 | XMS ---
PreManage Notification: BRUNO HEBERT Security Vp Product Events No recent Security Events currently on file CRITERIA MET - Group Notification - 6 ED Visits in 6 Months - [facility] Guidelines - PDMP CARE PROVIDERS JERMAINE CONTRERAS Physician Drawer Fitter 06/28/2018-Current PHONE: [phone] MARÍA FOLEY Nurse Practitioner 06/26/2019-Current PHONE: [phone] [facility] Primary Care Current [place] PHONE: Unknown [facility] Primary Care Current SHALONDA PHONE: Unknown Boo Patton Treatment [place] PHONE: Unknown [facility] Mental Health Provider 07/01/2016-Current PHONE: [phone] DAVE HASSAN Primary Care 03/07/2013-Current PHONE: Unknown Guidelines Source: [facility] Guidelines Date: 06/15/2019 Additional Information: Enrolled in Assertive Community Treatment program with [employer].\T\nbsp; Please contact [facility] regarding mental health concerns. [place] Office:\T\nbsp; Office [phone]\T\nbsp; Crisis [phone] Care History Behavioral 09/13/2017 [facility] Enrolled in the Assertive Community Treatment program at [facility].\T\nbsp; Contact Chapito Gr\T\nbsp; with behavioral health concerns. Crisis Line Office [phone] E.D. VISIT COUNT (12 MO.) [address] [facility] [address] [facility]av[facility] TOTAL 7 NOTE: Visits indicate total known visits. ED/UCC VISIT TRACKING (12 MO.) 07/31/2019 06:34 [facility] Figueroa [place] TYPE: Emergency COMPLAINT: - EYE PAIN 06/24/2019 11:18 [facility] [place] TYPE: Emergency COMPLAINT: - MEDICAL CLEARANCE DIAGNOSES: - Type 2 diabetes mellitus without complications - Essential (primary) hypertension - Schizoaffective disorder, unspecified - penitentiary (current) use of insulin - Patient's noncompliance with other medical treatment and jaxon - Allergy status to other drugs, medicaments and biological sub - Other technician terminal and repeater (current) drug therapy - Nicotine dependence, unspecified, uncomplicated 06/15/2019 08:05 [facility]ueroa [place] TYPE: Emergency COMPLAINT: - MEDICAL CLEARANCE DIAGNOSES: - Nicotine dependence, unspecified, uncomplicated - Type 2 diabetes mellitus without complications - Essential (primary) hypertension - terminologist (current) use of insulin - Other technician terminal and repeater (current) drug therapy - Schizoaffective disorder, unspecified - Schizoaffective disorder, unspecified 06/15/2019 04:04 [facility] Figueroa [place] TYPE: Emergency COMPLAINT: - ANXIETY DIAGNOSES: - Other technician terminal and repeater (current) drug therapy - Unspecified psychosis not due to a substance or known physiol - Chest pain, unspecified - Type 2 diabetes mellitus without complications - Essential (primary) hypertension 06/10/2019 08:19 [facility] Figueroa [place] TYPE: Emergency COMPLAINT: - POSS HEART ATTACK DIAGNOSES: - Nicotine dependence, cigarettes, uncomplicated - Nicotine dependence, unspecified, uncomplicated - Essential (primary) hypertension - Anxiety disorder, unspecified - Other technician terminal and repeater (current) drug therapy - Allergy status to other drugs, medicaments and biological sub - Schizoaffective disorder, unspecified - Type 2 diabetes mellitus without complications - penitentiary (current) use of oral hypoglycemic drugs 05/26/2019 12:41 FR[facility]CH[facility]KA Figueroa [place] TYPE: Emergency COMPLAINT: - HIGH BLOOD SUGAR DIAGNOSES: - Disorder of urea cycle metabolism, unspecified - Type 2 diabetes mellitus with hyperglycemia - Other usp (current) drug therapy - Type 2 diabetes mellitus with hyperglycemia - Schizoaffective disorder, unspecified - Disorientation, unspecified - Allergy status to other drugs, medicaments and biological sub - Essential (primary) hypertension - Nicotine dependence, unspecified, uncomplicated - terminologist (current) use of oral hypoglycemic drugs 03/05/2019 00:24 [facility]KA Figueroa [place] TYPE: Emergency COMPLAINT: - MEDICATION ISSUES DIAGNOSES: - Allergy status to other drugs, medicaments and biological sub - Essential (primary) hypertension - Type 2 diabetes mellitus without complications - Other technician terminal and repeater (current) drug therapy - Restlessness and agitation - Schizoaffective disorder, unspecified - terminologist (current) use of insulin INPATIENT VISIT TRACKING (12 MO.) No inpatient visits to display in this time frame [email or web address]
== END 2019-07-31 08:30 | disposition home or self-care (01) ==
LOC: ED 06:33
DX: H57.89 Other specified disorders of eye and adnexa (principal); F41.9 Anxiety disorder, unspecified; E11.9 Type 2 diabetes mellitus without complications; I10 Essential (primary) hypertension; F17.200 Nicotine dependence, unspecified, uncomplicated; Z79.899 Other long term (current) drug therapy
CPT/HCPCS: 99283

== ENCOUNTER 2019-08-03 18:31 | Emergency (ER) | payer MEDICARE, OTHER ==
[~2019-08-03] VITALS: Ht 180.3 cm; Wt 131.5 kg
--- OUTSIDE RECORDS SUMMARY | 2019-08-03 18:34 | XMS ---
PreManage Notification: BRUNO HEBERT Security Highway Painter Events No recent Security Events currently on file CRITERIA MET - Group Notification - 6 ED Visits in 6 Months - [facility] - Has Care Guidelines - PDMP - [facility] - 2 Visits in 30 Days CARE PROVIDERS JERMAINE CONTRERAS Physician Stockroom Attendant 06/28/2018-Current PHONE: [phone] MARÍA FOLEY Nurse Practitioner 06/26/2019-Current PHONE: [phone] Guidelines Source: [facility] Guidelines Date: 06/15/2019 Additional Information: Enrolled in Assertive Community Treatment program with [facility].\T\nbsp; Please contact [facility] regarding mental health concerns. Lisa Office:\T\nbsp; Office [phone]\T\nbsp; Crisis [phone] Care History Behavioral 09/13/2017 [facility] Enrolled in the Assertive Community Treatment program at [facility].\T\nbsp; Contact [facility]\T\nbsp; with behavioral health concerns. Crisis Line [phone] Office [phone] Fifi VISIT COUNT (12 MO.) 8 FRANCHESKA Otto TOTAL 8 NOTE: Visits indicate total known visits. 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 driver (current) use of insulin - Patient's noncompliance with other medical treatment and jaxon - Allergy status to other drugs, medicaments and biological sub - Other usp (current) drug therapy - Nicotine dependence, unspecified, uncomplicated 06/15/2019 08:05 [facility] [place] TYPE: Emergency COMPLAINT: - MEDICAL CLEARANCE DIAGNOSES: - Nicotine dependence, unspecified, uncomplicated - Type 2 diabetes mellitus without complications - Essential (primary) hypertension - skilled nursing (current) use of insulin - Other usp (current) drug therapy - Schizoaffective disorder, unspecified - Schizoaffective disorder, unspecified 06/15/2019 04:04 [facility] [place] TYPE: Emergency COMPLAINT: - ANXIETY DIAGNOSES: - Other rodent exterminator (current) drug therapy - Unspecified psychosis not due to a substance or known physiol - Chest pain, unspecified - Type 2 diabetes mellitus without complications - Essential (primary) hypertension 06/10/2019 08:19 [facility] [place] TYPE: Emergency COMPLAINT: - POSS HEART ATTACK DIAGNOSES: - Nicotine dependence, cigarettes, uncomplicated - Nicotine dependence, unspecified, uncomplicated - Essential (primary) hypertension - Anxiety disorder, unspecified - Other rodent exterminator (current) drug therapy - Allergy status to other drugs, medicaments and biological sub - Schizoaffective disorder, unspecified - Type 2 diabetes mellitus without complications - skilled nursing (current) use of oral hypoglycemic drugs 05/26/2019 [...] hypertension - Nicotine dependence, unspecified, uncomplicated - 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 [place] TYPE: Emergency COMPLAINT: - MEDICATION ISSUES DIAGNOSES: - Allergy status to other drugs, medicaments and biological sub - Essential (primary) hypertension - Type 2 diabetes mellitus without complications - Other rodent exterminator (current) drug therapy - Restlessness and agitation - Schizoaffective disorder, unspecified - local company intermodal truck driver (current) use of insulin INPATIENT VISIT TRACKING (12 MO.) No inpatient visits to display in this time frame [id number]
== END 2019-08-03 18:51 | disposition home or self-care (01) ==
LOC: ED 18:31
DX: R06.02 Shortness of breath (principal); R05 Cough

== ENCOUNTER → 2020-12-18 | Emergency (ER) | payer MEDICARE, OTHER ==
[~2020-12-18] VITALS: Ht 180.3 cm; Wt 142.5 kg
[~2020-12-18] MED LIST changes: +ABILIFY MAINTE300 MG IM; +ATIVAN0.5 MG PO; +CLOZARIL200 MG PO; +MINIPRESS5 MG PO; +OZEMPIC1 MG/0.71 SQ; +REMERON15 MG PO
--- OUTSIDE RECORDS SUMMARY | 2020-12-18 13:08 | XMS ---
PreManage Notification: BRUNO HEBERT Security Door Slinger Events 1 event(s) in the past 18 months Most recent security events: Elopement at [facility] 08/03/2019 18:31 - Other Details: PATIENT LWBS. CRITERIA MET - [facility] - Has Care Guidelines - Group Notification - PDMP CARE PROVIDERS JERMAINE CONTRERAS Physician Lime Supervisor 06/28/2018-Current PHONE: [phone] MARÍA FOLEY Nurse Practitioner 06/26/2019-Current PHONE: [phone] Guidelines Source: [facility] Guidelines Date: 08/08/2019 Care Recommendation: Enrolled in Assertive Community Treatment program with [facility].\T\[facility] countyp; Please contact [facility] with any mental health concerns: Lisa [phone] [place] [phone] Crisis Line [phone] E.D. VISIT COUNT (12 MO.) 1 FRANCHESKA Otto TOTAL 1 NOTE: Visits indicate total known visits. ED/UCC VISIT TRACKING (12 MO.) 12/18/2020 13:05 [facility] [place] TYPE: Emergency COMPLAINT: - IRREGULAR LABS INPATIENT VISIT TRACKING (12 MO.) No inpatient visits to display in this time frame [email or web address]
== END ==
LOC: ED 13:04
DX: E87.1 Hypo-osmolality and hyponatremia (principal); E87.79 Other fluid overload; E11.9 Type 2 diabetes mellitus without complications; I10 Essential (primary) hypertension; F17.200 Nicotine dependence, unspecified, uncomplicated; Z88.8 Allergy status to other drugs, medicaments and biological substances; Z79.899 Other long term (current) drug therapy; Z79.4 Long term (current) use of insulin
CPT/HCPCS: 80053; 85025; 99284

== ENCOUNTER 2022-07-26 10:51 | Emergency (ER) | payer MEDICARE, OTHER ==
[~2022-07-26] VITALS: Ht 180.3 cm; Wt 137.0 kg
--- OUTSIDE RECORDS SUMMARY | 2022-07-26 11:24 | XMS ---
PreManage Notification: BRUNO HEBERT Security Writer Technical Publications Events No recent Security Events currently on file CRITERIA MET - Group Notification CARE PROVIDERS -, Lisa- Dentist: Preventive Medicine Specialist [facility] PHONE: [phone] JERMAINE CONTRERAS Physician Cooler Worker 06/28/2018-Current PHONE: Unknown AME WALTERS [facility] Current PHONE: [phone] MARÍA FOLEY Nurse Practitioner 06/26/2019-Current PHONE: [phone] Care Guidelines exist for the following facilities: [facility] Fifi VISIT COUNT (12 MO.) 1 FRANCHESKA Otto TOTAL 1 NOTE: Visits indicate total known visits. ED/UCC VISIT TRACKING (12 MO.) 07/26/2022 10:[address] [facility] [place] TYPE: Emergency COMPLAINT: - SUICIDAL IDEATION INPATIENT VISIT TRACKING (12 MO.) No inpatient visits to display in this time frame [email or web address]
== END 2022-07-26 18:28 | disposition home or self-care (01) ==
LOC: ED 10:51
DX: R45.851 Suicidal ideations (principal); E11.9 Type 2 diabetes mellitus without complications; I10 Essential (primary) hypertension; F20.9 Schizophrenia, unspecified; F17.200 Nicotine dependence, unspecified, uncomplicated; Z88.8 Allergy status to other drugs, medicaments and biological substances; Z79.899 Other long term (current) drug therapy; Z79.4 Long term (current) use of insulin; Z79.84 Long term (current) use of oral hypoglycemic drugs
CPT/HCPCS: 36415; 80053; 81003; 84443; 85025; 99285; G0480

== ENCOUNTER 2023-01-16 20:19 | Emergency (ER) | payer MEDICARE, OTHER ==
[~2023-01-16] VITALS: Ht 180.3 cm; Wt 136.1 kg
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
[2023-01-16 22:16] LABS: HEMATOCRIT 40.4 % (35.0-50.0); HEMOGLOBIN 13.7 g/dL (12.0-18.0); MCH 28.9 (27-36); MCHC 33.8 g/dl (30-36)
[2023-01-16 22:19] LABS: BASOPHILS 0.6 % (0-2); EOSINOPHILS 0.4 % (0-6); LYMPHOCYTES 33.3 % (24-44); MCV 85.3 fl (81-99); MONOCYTES 8.9 % (0-12); NEUTROPHILS 56.8 % (39-80); PLATELET COUNT 199 K/uL (140-440); RBC 4.74 M/ul (4.3-5.7)
[2023-01-16 22:37] LABS: ALBUMIN 4.1 g/dL (3.4-5.0); ALBUMIN/GLOBULIN RATIO 1.46 (1.1-2.4); BILIRUBIN, TOTAL 0.5 ng/dL (0.2-1.0); BUN/CREATININE RATIO 15.18 (6.0-28.6); CALCIUM 9.2 mg/dL (8.5-10.1); CREATININE, SERUM 0.79 mg/dL (0.70-1.30); PROTEIN, TOTAL 6.9 g/dL (6.4-8.2)
[2023-01-16 23:34] VITALS: BP 129/84
== END 2023-01-16 23:34 | disposition home or self-care (01) ==
LOC: ED 20:19
PROVIDERS: Emergency Medicine
DX: R06.00 Dyspnea, unspecified (principal); R09.81 Nasal congestion; R42 Dizziness and giddiness; E11.649 Type 2 diabetes mellitus with hypoglycemia without coma; I10 Essential (primary) hypertension; F25.9 Schizoaffective disorder, unspecified; F17.200 Nicotine dependence, unspecified, uncomplicated; Z20.822 Contact with and (suspected) exposure to COVID-19; Z88.2 Allergy status to sulfonamides; Z79.899 Other long term (current) drug therapy; Z79.4 Long term (current) use of insulin; Z79.84 Long term (current) use of oral hypoglycemic drugs
CPT/HCPCS: 36415; 71046; 80053; 83880; 85025; 99283-25; A9270; U0002

== ENCOUNTER 2023-11-20 19:48 | Emergency (ER) | payer MEDICARE, OTHER ==
[~2023-11-20] VITALS: Ht 180.3 cm; Wt 135.0 kg
--- OUTSIDE RECORDS SUMMARY | 2023-11-20 19:49 | XMS ---
PreManage Notification: BRUNO HEBERT Security Veterinary Laboratory Diagnostician Events No recent Security Events currently on file CRITERIA MET - Group Notification CARE PROVIDERS MARÍA FOLEY Nurse Practitioner 06/26/2019-Current PHONE: [phone] JERMAINE CONTRERAS Physician Chief Client Officer 06/28/2018-Current PHONE: Unknown -, [facility] Dentist: Trucking Manager [facility] PHONE: [phone] -Lisa- Dentist: Trucking Manager [facility] PHONE: [phone] [facility] CARE SYSTEM MelissaPallavi [facility] PHONE: [phone] Care Guidelines exist for the following facilities: [facility] ( 08/08/2019 ) Fifi VISIT COUNT (12 MO.) 2 FRANCHESKA Otto TOTAL 2 NOTE: Visits indicate total known visits. ED/UCC VISIT TRACKING (12 MO.) 11/20/2023 19:49 [facility] [place] TYPE: Emergency COMPLAINT: - MEDICAL CLEARANCE 01/16/2023 20:20 [facility] [place] TYPE: Emergency COMPLAINT: - POSS COVID DIAGNOSES: - Allergy status to sulfonamides - Contact with and (suspected) exposure to COVID-19 - Dizziness and giddiness - Dyspnea, unspecified - Essential (primary) hypertension - regional intermodal truck driver (current) use of insulin - group home (current) use of oral hypoglycemic drugs - Nasal congestion - Nicotine dependence, unspecified, uncomplicated - Other half-way (current) drug therapy - Schizoaffective disorder, unspecified - Shortness of breath - Type 2 diabetes mellitus with hypoglycemia without coma INPATIENT VISIT TRACKING (12 MO.) No inpatient visits to display in this time frame [id number]
[2023-11-20 20:44] LABS: BILIRUBIN, URINE NEGATIVE (negative); BLOOD/HGB, URINE NEGATIVE (Negative); KETONE, URINE NEGATIVE (Negative); LEUK ESTERASE, URINE NEGATIVE (negative); NITRITE, URINE NEGATIVE (negative)
[2023-11-20] MEDS ORDERED: ABILIFY10 MG PO (20:50)
[2023-11-20] MEDS ORDERED: CITALOPRAM HBR40 MG PO (20:50)
[2023-11-20 20:53] LABS: BASOPHILS 0.5 % (0-2); EOSINOPHILS 0.1 % (0-6); HEMATOCRIT 41.1 % (35.0-50.0); HEMOGLOBIN 13.9 g/dL (12.0-18.0); MCH 28.6 (27-36); MCHC 33.8 g/dl (30-36); MCV 84.5 fl (81-99); MONOCYTES 10.5 % (0-12); NEUTROPHILS 56.9 % (39-80); PLATELET COUNT 208 K/uL (140-440); RBC 4.87 M/ul (4.3-5.7); RDW 13.7 (10.5-15.0)
[2023-11-20] MEDS ORDERED: FLUPHENAZINE HC10 MG PO (20:53)
[2023-11-20] MEDS ORDERED: PRAZOSIN HCL2 MG PO (20:57)
[2023-11-20 21:13] LABS: ACETAMINOPHEN 0 ug/mL (10-30); ALBUMIN 4.4 g/dL (3.4-5.0); ALBUMIN/GLOBULIN RATIO 1.47 (1.1-2.4); ALCOHOL, MEDICAL <3 ng/dL (<3); ALKALINE PHOSPHATASE 52 U/L (46-116); ALT (SGPT) 67 U/L (14-59); AST (SGOT) 44 U/L (15-37); BILIRUBIN, TOTAL 0.5 ng/dL (0.2-1.0); BUN/CREATININE RATIO 11.53 (6.0-28.6); CALCIUM 9.5 mg/dL (8.5-10.1); CARBON DIOXIDE 27 mmol/L (21-32); CHLORIDE 99 mmol/L (98-107); CREATININE, SERUM 1.04 mg/dL (0.70-1.30); GLOMERULAR FILTRATION RATE,EST 87 mL/min (>60); PROTEIN, TOTAL 7.4 g/dL (6.4-8.2); SALICYLATE 0.8 mg/dL (2.8-20.0); TSH, 3RD GENERATION 2.018 uIU/mL (0.358-3.740); UREA NITROGEN 12 mg/dL (7-18)
[2023-11-20] MEDS ORDERED: METFORMIN HCL500 MG PO (21:17)
[2023-11-20] MEDS ORDERED: NOVOLOG MI100 UNIT/1 SUB-Q (21:19)
[2023-11-20 21:21] LABS: AMPHETAMINES, URINE NEGATIVE (NEGATIVE); BARBITURATES, URINE NEGATIVE (NEGATIVE); BENZODIAZEPINE, URINE NEGATIVE (NEGATIVE); BUPRENORPHINE, URINE NEGATIVE (NEGATIVE); CANNABINOID, URINE NEGATIVE (NEGATIVE); COCAINE, URINE NEGATIVE (NEGATIVE); ECSTASY, URINE NEGATIVE (NEGATIVE); FENTANYL, URINE NEGATIVE (NEGATIVE); METHADONE, URINE NEGATIVE (NEGATIVE); OPIATES, URINE NEGATIVE (NEGATIVE); OXYCODONE, URINE NEGATIVE (NEGATIVE); PHENCYCLIDINE, URINE NEGATIVE (NEGATIVE)
[2023-11-20] MEDS ORDERED: TRULICITY4.5 MG/0.5 SUB-Q (21:25)
[2023-11-20] MEDS ORDERED: MIRTAZAPINE 30 MG TAB PO SCH (22:41)
[2023-11-20] MEDS ORDERED: PRAZOSIN HCL 5 MG CAP PO SCH (22:45)
[2023-11-20] MEDS ORDERED: metFORMIN HCL 500 MG TAB PO SCH (22:45)
[2023-11-20] MEDS ORDERED: LORazepam 0.5 MG TAB PO SCH (22:45)
[2023-11-20] MEDS ORDERED: CITALOPRAM HYDROBROMIDE 20 MG TAB PO SCH (22:45)
[2023-11-20] MEDS ORDERED: ARIPiprazole 10 MG TAB PO SCH (23:15)
[2023-11-20] MEDS ORDERED: PRAZOSIN HCL 1 MG CAP PO SCH ×2 (23:15)
[2023-11-21] MEDS ORDERED: IBLOOD GLUCOSE TEST STRIP 1 EA TEST VI SCH (08:00)
[2023-11-21] MEDS ORDERED: metFORMIN HCL 500 MG TAB PO SCH (08:00)
[2023-11-21] MEDS ORDERED: LOSARTAN POTASSIUM 50 MG TAB PO SCH (09:00)
[2023-11-21] MEDS ORDERED: ARIPiprazole 10 MG TAB PO SCH (09:00)
[2023-11-21] MEDS ORDERED: INHALER, ASSIST DEVICES 1 EACH SPACER MISC ONE (11:45)
[2023-11-21] MEDS ORDERED: ALBUTEROL SULFATE 8 GM HOME.PACK INH PRN (11:45)
[2023-11-21] MEDS ORDERED: FLUPHENAZINE HCL 5 MG PO SCH ×2 (13:00→21:00)
[2023-11-21] MEDS ORDERED: ED PATIENT'S OWN MED POCKET #2 XX PRN (14:45)
[2023-11-21] MEDS ORDERED: LORazepam 0.5 MG TAB PO ONE (16:30)
[2023-11-21] MEDS ORDERED: ARIPiprazole 10 MG TAB PO ONE (16:30)
[2023-11-21] MEDS ORDERED: PRAZOSIN HCL 1 MG CAP PO SCH (21:00)
[2023-11-21] MEDS ORDERED: LORazepam 1 MG TAB PO SCH (21:00)
[2023-11-22] MEDS ORDERED: FLUPHENAZINE HCL 5 MG PO SCH (09:00)
[2023-11-22] MEDS ORDERED: ARIPiprazole 10 MG TAB PO SCH (09:00)
[2023-11-22 12:20] VITALS: BP 137/79
== END 2023-11-22 12:22 | disposition home or self-care (01) ==
LOC: ED 19:48
PROVIDERS: Internal Medicine
DX: F20.9 Schizophrenia, unspecified (principal); F22 Delusional disorders; E11.9 Type 2 diabetes mellitus without complications; I10 Essential (primary) hypertension; F17.200 Nicotine dependence, unspecified, uncomplicated; Z88.8 Allergy status to other drugs, medicaments and biological substances; Z79.899 Other long term (current) drug therapy; Z79.84 Long term (current) use of oral hypoglycemic drugs; Z79.4 Long term (current) use of insulin
CPT/HCPCS: 36415; 80053; 80307; 81003; 84443; 85025; A9270; A9270-GY; G0480

== ENCOUNTER 2024-07-14 20:49 | Emergency (ER) | payer MEDICARE, OTHER ==
[~2024-07-14] VITALS: Ht 185.4 cm; Wt 143.0 kg
[~2024-07-14 20:49] MED LIST changes: +ABILIFY10 MG PO; +ARIPIPRAZOLE15 MG; +ARIPIPRAZOLE20 MG; +ARISTADA882 MG/3.2; +ATENOLOL50 MG; +ATORVASTATIN CA80 MG; +CITALOPRAM HBR40 MG; +CITALOPRAM HBR40 MG PO; +DOCUSATE SODIU100 MG; +FAMOTIDINE20 MG; +FARXIGA10 MG; +FENOFIBRATE160 MG; +FEROSUL325 MG; +FERROUS SULFAT325 M2; +FLUPHENAZINE HC10 MG; +FLUPHENAZINE HC10 MG PO; +FREESTYLE LANC1 EACH MISC; +FREESTYLE LITE1 EAC1; +HUMALOG MI100 UNIT/2 SUB-Q; +ISOSORBIDE MONO60 MG; +JARDIANCE10 MG; +LO-DOSE ASPIRIN81 MG; +LORAZEPAM0.5 MG; +LOSARTAN POTAS100 MG; +METFORMIN HCL1000 MG; +METFORMIN HCL500 MG PO; +MIRTAZAPINE30 MG; +OMEGA-3 FISH O1 EAC2; +PRAZOSIN HCL2 MG; +PRAZOSIN HCL2 MG PO; +TRULICITY4.5 MG/0.5 SQ; +TRULICITY4.5 MG/0.5 SUB-Q; +VITAMIN D21250 MCG
--- OUTSIDE RECORDS SUMMARY | 2024-07-14 20:56 | XMS ---
PreManage Notification: BRUNO HEBERT Security Data Typist Events No recent Security Events currently on file CRITERIA MET - Group Notification CARE PROVIDERS MARÍA FOLEY Nurse Practitioner 06/26/2019-Current PHONE: [phone] JERMAINE CONTRERAS Physician Singeing Torch Operator 06/28/2018-Current PHONE: [phone] -[facility] Dentist: Compensation Associate [facility] PHONE: [phone] -Lisa- Dentist: Compensation Associate [facility] PHONE: [phone] CE [facility] CARE SYSTEM \F\ <UNAVAIL> PHONE: [phone] Care Guidelines exist for the following facilities: [facility] [place] ( 08/[facility]/2019 ) Fifi VISIT COUNT (12 MO.) 3 FRANCHESKA Otto TOTAL 3 NOTE: Visits indicate total known visits. ED/UCC VISIT TRACKING (12 MO.) 07/14/2024 20:49 [facility] [place] TYPE: Emergency COMPLAINT: - MEDICAL CLEARANCE 01/25/2024 18:36 [facility] [place] TYPE: Emergency COMPLAINT: - ALTERED LOC DIAGNOSES: - alf (current) use of aspirin - exterminator termite (current) use of insulin - exterminator termite (current) use of oral hypoglycemic drugs - Long-term (current) use of injectable non-insulin antidiabetic drugs - Other care home (current) drug therapy - Poisoning by benzodiazepines, accidental (unintentional), initial encounter - Somnolence - Transient alteration of awareness 11/20/2023 19:49 [facility] [place] TYPE: Emergency COMPLAINT: - MEDICAL CLEARANCE DIAGNOSES: - Allergy status to other drugs, medicaments and biological substances - Delusional disorders - Essential (primary) hypertension - alf (current) use of insulin - exterminator termite (current) use of oral hypoglycemic drugs - Nicotine dependence, unspecified, uncomplicated - Other rat exterminator (current) drug therapy - Schizophrenia, unspecified - Type 2 diabetes mellitus without complications INPATIENT VISIT TRACKING (12 MO.) No inpatient visits to display in this time frame [email or web address]
[2024-07-14] MEDS ORDERED: CHLORTHALIDONE25 MG (21:29)
[2024-07-14] MEDS ORDERED: BREO ELLIPTA 21 EACH IH (21:29)
[2024-07-14] MEDS ORDERED: MOUNJARO12.5 MG/0. SQ (21:32)
[2024-07-14 21:41] LABS: BASOPHILS 0.7 % (0-2); EOSINOPHILS 0.3 % (0-6); HEMATOCRIT 41.1 % (35.0-50.0); HEMOGLOBIN 14.2 g/dL (12.0-18.0); LYMPHOCYTES 26.3 % (24-44); MCH 28.7 (27-36); MCHC 34.6 g/dl (30-36); MCV 82.7 fl (81-99); MONOCYTES 10.9 % (0-12); NEUTROPHILS 61.8 % (39-80); PLATELET COUNT 197 K/uL (140-440); RBC 4.96 M/ul (4.3-5.7)
[2024-07-14 21:44] LABS: AMPHETAMINES, URINE NEGATIVE (NEGATIVE); BARBITURATES, URINE NEGATIVE (NEGATIVE); BENZODIAZEPINE, URINE NEGATIVE (NEGATIVE); BUPRENORPHINE, URINE NEGATIVE (NEGATIVE); CANNABINOID, URINE NEGATIVE (NEGATIVE); COCAINE, URINE NEGATIVE (NEGATIVE); ECSTASY, URINE NEGATIVE (NEGATIVE); FENTANYL, URINE NEGATIVE (NEGATIVE); METHADONE, URINE NEGATIVE (NEGATIVE); OPIATES, URINE NEGATIVE (NEGATIVE); OXYCODONE, URINE NEGATIVE (NEGATIVE); PHENCYCLIDINE, URINE NEGATIVE (NEGATIVE)
[2024-07-14 22:04] LABS: ACETAMINOPHEN 0 ug/mL (10-30); ALBUMIN 4.4 g/dL (3.4-5.0); ALBUMIN/GLOBULIN RATIO 1.76 (1.1-2.4); ALCOHOL, MEDICAL <3 ng/dL (<3); ALKALINE PHOSPHATASE 60 U/L (46-116); ALT (SGPT) 52 U/L (14-59); ANION GAP 10.7 (7-21); AST (SGOT) 32 U/L (15-37); BILIRUBIN, TOTAL 0.5 mg/dL (0.2-1.0); BUN/CREATININE RATIO 10.81 (6.0-28.6); CALCIUM 9.3 mg/dL (8.5-10.1); CARBON DIOXIDE 27 mmol/L (21-32); CHLORIDE 95 mmol/L (98-107); CREATININE, SERUM 0.74 mg/dL (0.70-1.30); GLOMERULAR FILTRATION RATE,EST 109 mL/min (>60); POTASSIUM 3.7 mmol/L (3.5-5.1); PROTEIN, TOTAL 6.9 g/dL (6.4-8.2); SALICYLATE 1.4 mg/dL (2.8-20.0); TSH, 3RD GENERATION 1.683 uIU/mL (0.358-3.740); UREA NITROGEN 8 mg/dL (7-18)
[2024-07-14] MEDS ORDERED: FAMOTIDINE 20 MG TAB PO SCH (23:44)
[2024-07-14] MEDS ORDERED: DOCUSATE SODIUM 100 MG CAP PO SCH (23:45)
[2024-07-15] MEDS ORDERED: PATIENT'S OWN MEDICATION(S) ORDER PO SCH (02:00)
[2024-07-15] MEDS ORDERED: Insulin Regular, Human 100 UNIT/ML ML SUB-Q SCH (07:00)
[2024-07-15] MEDS ORDERED: IBLOOD GLUCOSE TEST STRIP 1 EA TEST VI SCH (07:00)
[2024-07-15] MEDS ORDERED: metFORMIN HCL 500 MG TAB PO SCH (08:00)
[2024-07-15] MEDS ORDERED: cloZAPine 25 MG TAB PO SCH (08:00)
[2024-07-15] MEDS ORDERED: ASPIRIN 81 MG CHEW PO SCH (08:00)
[2024-07-15] MEDS ORDERED: FERROUS SULFATE 325 MG TAB PO SCH (08:00)
[2024-07-15] MEDS ORDERED: atenoloL 50 MG TAB PO SCH (09:00)
[2024-07-15] MEDS ORDERED: LORazepam 0.5 MG TAB PO SCH (09:00)
[2024-07-15] MEDS ORDERED: CITALOPRAM HYDROBROMIDE 20 MG TAB PO SCH (09:00)
[2024-07-15] MEDS ORDERED: LOSARTAN POTASSIUM 100 MG TAB PO SCH (09:00)
[2024-07-15] MEDS ORDERED: ARIPiprazole 10 MG TAB PO SCH (09:00)
[2024-07-15] MEDS ORDERED: CHLORTHALIDONE 25 MG TAB PO SCH (09:00)
[2024-07-15] MEDS ORDERED: ISOSORBIDE MONONITRATE 30 MG TABCR PO SCH (09:00)
[2024-07-15 09:08] VITALS: BP 126/76
[2024-07-15] MEDS ORDERED: ATORVASTATIN 40 MG TAB PO SCH (17:00)
[2024-07-15] MEDS ORDERED: MIRTAZAPINE 30 MG TAB PO SCH (21:00)
[2024-07-15] MEDS ORDERED: FENOFIBRATE,MICRONIZED 145 MG TAB PO SCH (21:00)
[2024-07-15] MEDS ORDERED: PRAZOSIN HCL 5 MG CAP PO SCH (21:00)
== END 2024-07-15 09:10 ==
LOC: ED 20:49
PROVIDERS: Family Medicine
DX: F20.9 Schizophrenia, unspecified (principal); F32.A Depression, unspecified; F17.200 Nicotine dependence, unspecified, uncomplicated; Z88.8 Allergy status to other drugs, medicaments and biological substances; Z79.85 Long-term (current) use of injectable non-insulin antidiabetic drugs; Z79.84 Long term (current) use of oral hypoglycemic drugs; Z79.4 Long term (current) use of insulin; Z79.899 Other long term (current) drug therapy
CPT/HCPCS: 36415; 80053; 80307; 84443; 85025; 99285; A9270; G0480

== ENCOUNTER 2024-08-13 12:43 | Emergency (ER) | payer MEDICARE, OTHER ==
[~2024-08-13] VITALS: Ht 185.4 cm; Wt 133.5 kg
[~2024-08-13 12:43] MED LIST changes: +BREO ELLIPTA 21 EACH IH; +CHLORTHALIDONE25 MG; +MOUNJARO12.5 MG/0. SQ
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
[2024-08-13 12:56] LABS: BASOPHILS 0.6 % (0-2); EOSINOPHILS 0.1 % (0-6); HEMATOCRIT 41.5 % (35.0-50.0); HEMOGLOBIN 14.6 g/dL (12.0-18.0); LYMPHOCYTES 17.1 % (24-44); MCH 28.6 (27-36); MCHC 35.1 g/dl (30-36); MCV 81.4 fl (81-99); MONOCYTES 10.7 % (0-12); NEUTROPHILS 71.5 % (39-80); PLATELET COUNT 220 K/uL (140-440)
[2024-08-13 13:15] LABS: ALBUMIN 4.2 g/dL (3.4-5.0); ALBUMIN/GLOBULIN RATIO 1.35 (1.1-2.4); ANION GAP 11.9 (7-21); BILIRUBIN, TOTAL 0.7 mg/dL (0.2-1.0); BUN/CREATININE RATIO 6.02 (6.0-28.6); CREATININE, SERUM 0.83 mg/dL (0.70-1.30); MAGNESIUM 1.8 mg/dL (1.8-2.4); POTASSIUM 3.9 mmol/L (3.5-5.1); PROTEIN, TOTAL 7.3 g/dL (6.4-8.2)
[2024-08-13] MEDS ORDERED: SODIUM CHLORIDE 0.9% 1,000 ML IV ONE ×2 (13:15)
[2024-08-13] MEDS ORDERED: ondansetron HCL 4 MG/2 ML VIAL IV ONE (13:15)
[2024-08-13] MEDS ORDERED: risperiDONE 2 MG TAB PO ONE (13:45)
[2024-08-13 14:01] LABS: BILIRUBIN, URINE NEGATIVE (negative); BLOOD/HGB, URINE NEGATIVE (Negative); KETONE, URINE NEGATIVE (Negative); LEUK ESTERASE, URINE NEGATIVE (negative); NITRITE, URINE NEGATIVE (negative)
[2024-08-13 14:06] LABS: BACTERIA, URINE NONE SEEN /hpf (negative); CRYSTALS, URINE NONE SEEN (0-1+); EPITHELIAL CELLS, URINE SQUAMOUS 1+ /lpf (0-1+); RED BLOOD CELLS, URINE 0-1 /hpf (0-5)
[2024-08-13 14:07] LABS: CASTS, URINE HYALINE 1+ \\lpf; COLLECTION TYPE, URINE CLEAN CATCH; REFLEX CULTURE, URINE No (No)
[2024-08-13 14:15] LABS: AMPHETAMINES, URINE NEGATIVE (NEGATIVE); BARBITURATES, URINE NEGATIVE (NEGATIVE); BENZODIAZEPINE, URINE NEGATIVE (NEGATIVE); BUPRENORPHINE, URINE NEGATIVE (NEGATIVE); CANNABINOID, URINE NEGATIVE (NEGATIVE); COCAINE, URINE NEGATIVE (NEGATIVE); ECSTASY, URINE NEGATIVE (NEGATIVE); FENTANYL, URINE NEGATIVE (NEGATIVE); METHADONE, URINE NEGATIVE (NEGATIVE); OPIATES, URINE NEGATIVE (NEGATIVE); OXYCODONE, URINE NEGATIVE (NEGATIVE); PHENCYCLIDINE, URINE NEGATIVE (NEGATIVE)
[2024-08-13 18:12] VITALS: BP 122/84
--- NOTE | 2024-08-14 17:47 | EKG ---
[facility] [address] [place] [address] Signed Normal sinus rhythm Left axis deviation Abnormal ECG When compared with ECG of 15-JUN-2019 04:47, Current undetermined rhythm precludes rhythm comparison, needs review Confirmed by Beverley Enriquez DO ([id number]) on 08/14/2024 5:47:17 PM Electronically Signed By: BEVERLEY ENRIQUEZ DO 08/14/24 1747 PATIENT NAME: BRUNO HEBERT Electrocardiogram DATE OF : 74 PHYSICIAN: BEVERLEY ENRIQUEZ DO REPORT #: [id number] REPORT IS CONFIDENTIAL AND NOT TO BE RELEASED WITHOUT AUTHORIZATION
== END 2024-08-13 18:12 | disposition home or self-care (01) ==
LOC: ED 12:43
PROVIDERS: Emergency Medicine
DX: R07.2 Precordial pain (principal); F20.9 Schizophrenia, unspecified; R45.851 Suicidal ideations; F17.200 Nicotine dependence, unspecified, uncomplicated; Z79.84 Long term (current) use of oral hypoglycemic drugs; Z79.899 Other long term (current) drug therapy; Z79.82 Long term (current) use of aspirin; Z88.8 Allergy status to other drugs, medicaments and biological substances
CPT/HCPCS: 36415; 71045; 80053; 80307; 81001; 83690; 83735; 84484; 85025; 93005; 93010; 96374; 99285-25; J2405; J7030

== ENCOUNTER 2024-08-17 16:35 | Emergency (ER) | payer MEDICARE, OTHER ==
[~2024-08-17] VITALS: Ht 185.4 cm; Wt 133.5 kg
--- OUTSIDE RECORDS SUMMARY | 2024-08-17 16:42 | XMS ---
PreManage Notification: BRUNO HEBERT Security Rehabilitation Services Director Events No recent Security Events currently on file CRITERIA MET - Group Notification - [facility] - 2 Visits in 30 Days CARE PROVIDERS Jeremy Shultz Sales Vice President 08/08/2024-Current PHONE: [phone] MARÍA FOLEY Nurse Practitioner 06/26/2019-Current PHONE: [phone] JERMAINE CONTRERAS Physician Call Center Trainer 06/28/2018-Current PHONE: [phone] -[facility] Dentist: Adjunct Professor Of Law Noreen Gonzalez PHONE: [phone] -, Lisa- Dentist: Adjunct Professor Of Law [facility] PHONE: [phone] [facility] CARE SYSTEM \F\ <UNAVAIL> PHONE: [phone] Care Guidelines exist for the following facilities: [facility] ( 08/08/2019 ) Fifi VISIT COUNT (12 MO.) 5 FRANCHESKA Otto TOTAL 5 NOTE: Visits indicate total known visits. ED/UCC VISIT TRACKING (12 MO.) 08/17/2024 16:[facility] [place] TYPE: Emergency COMPLAINT: - POSS INFECTION 08/13/2024 12:[address] [facility] [place] TYPE: Emergency COMPLAINT: - CHEST PAIN DIAGNOSES: - Allergy status to other drugs, medicaments and biological substances - Chest pain, unspecified - termite technician (current) use of aspirin - USP (current) use of oral hypoglycemic drugs - Nicotine dependence, unspecified, uncomplicated - Other detention (current) drug therapy - Precordial pain - Schizophrenia, unspecified - Suicidal ideations 07/14/2024 20:49 [facility] [place] TYPE: Emergency COMPLAINT: - MEDICAL CLEARANCE DIAGNOSES: - Allergy status to other drugs, medicaments and biological substances - Auditory hallucinations - Depression, unspecified - USP (current) use of insulin - USP (current) use of oral hypoglycemic drugs - Long-term (current) use of injectable non-insulin antidiabetic drugs - Nicotine dependence, unspecified, uncomplicated - Other intermediate school teacher (current) drug therapy - Schizophrenia, unspecified 01/25/2024 18:36 [facility] [place] TYPE: Emergency COMPLAINT: - ALTERED LOC DIAGNOSES: - termite technician (current) use of aspirin - termite technician (current) use of insulin - termite technician (current) use of oral hypoglycemic drugs - [...] Delusional disorders - Essential (primary) hypertension - termite technician (current) use of insulin - USP (current) use of oral hypoglycemic drugs - Nicotine dependence, unspecified, uncomplicated - Other intermediate school teacher (current) drug therapy - Schizophrenia, unspecified - Type 2 diabetes mellitus without complications INPATIENT VISIT TRACKING (12 MO.) 07/15/2024 12:36 [facility] [place] TYPE: Psychiatric Services DIAGNOSES: 0. Schizophrenia, unspecified 0. Unspecified psychosis not due to a substance or known physiological condition 1. Unspecified psychosis not due to a substance or known physiological condition 2. Angina pectoris, unspecified 2. Essential (primary) hypertension 2. Food insecurity 2. Gastro-esophageal reflux disease without esophagitis 2. Homicidal ideations 2. Hyperlipidemia, unspecified 2. Hypo-osmolality and hyponatremia 2. Insomnia, unspecified 2. termite technician (current) use of anticoagulants 2. USP (current) use of insulin 2. termite technician (current) use of oral hypoglycemic drugs 2. [...] 2. Type 2 diabetes mellitus without complications [email or web address]
[2024-08-17] MEDS ORDERED: CITALOPRAM HBR20 MG PO (16:51)
[2024-08-17] MEDS ORDERED: CLINDAMYCIN PHOSPHATE/D5W 600 MG/50 ML PIGGYBACK IV ONE (18:15)
[2024-08-17 18:16] LABS: BASOPHILS 0.6 % (0-2); EOSINOPHILS 0.3 % (0-6); HEMATOCRIT 41.4 % (35.0-50.0); HEMOGLOBIN 14.4 g/dL (12.0-18.0); LYMPHOCYTES 26.5 % (24-44); MCH 28.3 (27-36); MCHC 34.9 g/dl (30-36); MCV 81.2 fl (81-99); MONOCYTES 11.9 % (0-12); NEUTROPHILS 60.7 % (39-80); PLATELET COUNT 233 K/uL (140-440); RDW 15.2 (10.5-15.0)
[2024-08-17 18:31] LABS: ALBUMIN 4.1 g/dL (3.4-5.0); ALBUMIN/GLOBULIN RATIO 1.24 (1.1-2.4); ANION GAP 10.6 (7-21); BILIRUBIN, TOTAL 0.6 mg/dL (0.2-1.0); BUN/CREATININE RATIO 10.93 (6.0-28.6); CALCIUM 8.9 mg/dL (8.5-10.1); CREATININE, SERUM 0.64 mg/dL (0.70-1.30); POTASSIUM 3.6 mmol/L (3.5-5.1); PROTEIN, TOTAL 7.4 g/dL (6.4-8.2)
[2024-08-17] MEDS ORDERED: BACTRIM DS TAB1 EACH PO (19:12)
[2024-08-17] MEDS ORDERED: CEPHALEXIN500 M1 PO (19:12)
[2024-08-17 19:59] VITALS: BP 143/96
== END 2024-08-17 20:00 | disposition home or self-care (01) ==
LOC: ED 16:35
PROVIDERS: Emergency Medicine
DX: L03.311 Cellulitis of abdominal wall (principal); L02.221 Furuncle of abdominal wall; F17.200 Nicotine dependence, unspecified, uncomplicated; Z88.8 Allergy status to other drugs, medicaments and biological substances
CPT/HCPCS: 36415; 74177; 80053; 85025; 99284-25; Q9967

== ENCOUNTER 2024-09-09 12:04 | Emergency (ER) | payer MEDICARE, OTHER ==
[~2024-09-09] VITALS: Ht 185.4 cm; Wt 133.5 kg
[~2024-09-09 12:04] MED LIST changes: +BACTRIM DS TAB1 EACH PO; +CEPHALEXIN500 M1 PO; +CITALOPRAM HBR20 MG PO
--- OUTSIDE RECORDS SUMMARY | 2024-09-09 12:11 | XMS ---
PreManage Notification: BRUNO HEBERT Security Finisher Plate Events No recent Security Events currently on file CRITERIA MET - Group Notification - [facility] - 2 Visits in 30 Days CARE PROVIDERS Jeremy Shultz Business Loan Processor 08/08/2024-Current PHONE: [phone] MARÍA FOLEY Nurse Practitioner 06/26/2019-Current PHONE: [phone] JERMAINE CONTRERAS Physician Associate Sales Manager 06/28/2018-Current PHONE: [phone] -[facility] Dentist: Extension Supervisor [facility]ore[facility] Gonzalez PHONE: [phone] -, Lisa- Dentist: Extension Supervisor [facility] Dental [facility] PHONE: [phone] [facility] CARE SYSTEM \F\ <UNAVAIL> PHONE: [phone] Care Guidelines exist for the following facilities: [facility] ( 08/08/2019 ) Fifi VISIT COUNT (12 MO.) 6 FRANCHESKA Otto TOTAL 6 NOTE: Visits indicate total known visits. ED/UCC VISIT TRACKING (12 MO.) 09/09/2024 12:05 [facility] [place] TYPE: Emergency COMPLAINT: - GENERALIZED WEAKNESS 08/17/2024 16:[address] [facility] [place] TYPE: Emergency COMPLAINT: - POSS INFECTION DIAGNOSES: - Allergy status to other drugs, medicaments and biological substances - Cellulitis of abdominal wall - Furuncle of abdominal wall - Nicotine dependence, unspecified, uncomplicated 08/13/2024 12:44 [facility] [place] TYPE: Emergency COMPLAINT: - CHEST PAIN DIAGNOSES: - Allergy status to other drugs, medicaments and biological substances - Chest pain, unspecified - snf (current) use of aspirin - intermediate school teacher (current) use of oral hypoglycemic drugs - Nicotine dependence, unspecified, uncomplicated - Other termite control servicer (current) drug therapy - Precordial pain - Schizophrenia, unspecified - Suicidal ideations 07/14/2024 20:49 [facility] [place] TYPE: Emergency COMPLAINT: - MEDICAL CLEARANCE DIAGNOSES: - Allergy status to other drugs, medicaments and biological substances - Auditory hallucinations - Depression, unspecified - snf (current) use of insulin - snf (current) use of oral hypoglycemic drugs - Long-term (current) use of injectable non-insulin antidiabetic drugs - Nicotine dependence, unspecified, uncomplicated - Other correction (current) drug therapy - Schizophrenia, unspecified 01/25/2024 18:36 [facility] [place] TYPE: Emergency COMPLAINT: - ALTERED LOC DIAGNOSES: - snf (current) use of aspirin - snf (current) use of insulin - intermediate school teacher (current) use of oral hypoglycemic drugs - Long-term (current) use of injectable non-insulin antidiabetic drugs - Other termite control servicer (current) drug therapy - Poisoning by benzodiazepines, accidental (unintentional), initial encounter - Somnolence - Transient alteration of awareness 11/20/2023 19:49 [facility] [place] TYPE: Emergency COMPLAINT: - MEDICAL CLEARANCE DIAGNOSES: - Allergy status to other drugs, medicaments and biological substances - Delusional disorders - Essential (primary) hypertension - snf (current) use of insulin - intermediate school teacher (current) use of oral hypoglycemic drugs - Nicotine dependence, unspecified, uncomplicated - Other termite control servicer (current) drug therapy - Schizophrenia, unspecified - Type 2 diabetes mellitus without complications INPATIENT VISIT TRACKING (12 MO.) 07/15/2024 12:36 [facility] [place] TYPE: Psychiatric Services DIAGNOSES: 0. Schizophrenia, unspecified 0. Unspecified psychosis not due to a substance or known physiological condition 1. Unspecified psychosis not due to a substance or known physiological condition 2. Angina pectoris, unspecified 2. Essential (primary) hypertension 2. Food insecurity 2. Gastro-esophageal reflux disease without esophagitis 2. Homicidal ideations 2. Hyperlipidemia, unspecified 2. Hypo-osmolality and hyponatremia 2. Insomnia, unspecified 2. intermediate school teacher (current) use of anticoagulants 2. intermediate school teacher (current) use of insulin 2. intermediate school teacher (current) use of oral hypoglycemic drugs 2. [...] 2. Type 2 diabetes mellitus without complications [email or web address]
[2024-09-09] MEDS ORDERED: NALOXONE HCL 2 MG/2 ML SYR NAS ONE (12:15)
[2024-09-09 12:40] VITALS: BP 138/84
== END 2024-09-09 12:40 | disposition left against medical advice (07) ==
LOC: ED 12:04
DX: R40.4 Transient alteration of awareness (principal); Z53.29 Procedure and treatment not carried out because of patient's decision for other reasons; F17.200 Nicotine dependence, unspecified, uncomplicated; Z79.2 Long term (current) use of antibiotics; Z88.8 Allergy status to other drugs, medicaments and biological substances
CPT/HCPCS: 80053; 82803; 85025; 99285-25; G0480; J2310

== ENCOUNTER 2024-09-11 11:37 | Emergency (ER) | payer MEDICARE, OTHER | END 2024-09-15 10:15 | LOC: ED 11:37 | DX: L03.311 Cellulitis of abdominal wall (principal); R62.7 Adult failure to thrive; F17.200 Nicotine dependence, unspecified, uncomplicated; Z88.8 Allergy status to other drugs, medicaments and biological substances; Z79.899 Other long term (current) drug therapy; Z79.2 Long term (current) use of antibiotics ==

== ENCOUNTER 2024-10-05 09:48 | Emergency (ER) | payer MEDICARE, OTHER ==
[~2024-10-05] VITALS: Ht 185.4 cm; Wt 128.5 kg
--- OUTSIDE RECORDS SUMMARY | 2024-10-05 09:55 | XMS ---
PreManage Notification: BRUNO HEBERT Security Professor Of Psychiatry Events No recent Security Events currently on file CRITERIA MET - 6 ED Visits in 6 Months - Group Notification - [facility] - 2 Visits in 30 Days CARE PROVIDERS Jeremy Shultz Wire Mesh Gate Assembler 08/08/2024-Current PHONE: [phone] MARÍA FOLEY Nurse Practitioner 06/26/2019-Current PHONE: [phone] JERMAINE CONTRERAS Physician Carburetor Rebuilder 06/28/2018-Current PHONE: [phone] -, [facility] Dentist: Telesales Agent Noreen Gonzalez PHONE: [phone] -, Lisa- Dentist: Telesales Agent [facility] PHONE: [phone] [facility] SYSTEM \F\ <UNAVAIL> PHONE: [phone] Care Guidelines exist for the following facilities: Cecil Montemayor ( 08/08/2019 ) Fifi VISIT COUNT (12 MO.) 8 FRANCHESKA Otto TOTAL 8 NOTE: Visits indicate total known visits. ED/UCC VISIT TRACKING (12 MO.) 10/05/2024 09:49 FRANCHESKA Banuelos TYPE: Emergency COMPLAINT: - MEDICAL CLEARANCE 09/11/2024 11:37 [facility] [place] TYPE: Emergency COMPLAINT: - WOUND CHECK DIAGNOSES: - Adult failure to thrive - Allergy status to other drugs, medicaments and biological substances - Cellulitis of abdominal wall - intermediate project manager (current) use of antibiotics - Nicotine dependence, unspecified, uncomplicated - Other manager long term care (current) drug therapy 09/09/2024 12:05 [facility] [place] TYPE: Emergency COMPLAINT: - GENERALIZED WEAKNESS DIAGNOSES: - Allergy status to other drugs, medicaments and biological substances - Altered mental status, unspecified - halfway (current) use of antibiotics - Nicotine dependence, unspecified, uncomplicated - Procedure and treatment not carried out because of patient's decision for other reasons - Transient alteration of awareness 08/17/2024 16:35 [facility] [place] TYPE: Emergency COMPLAINT: - POSS INFECTION DIAGNOSES: - Allergy status to other drugs, medicaments and biological substances - Cellulitis of abdominal wall - Furuncle of abdominal wall - Nicotine dependence, unspecified, uncomplicated 08/13/2024 12:[address] [facility] [place] TYPE: Emergency COMPLAINT: - CHEST PAIN DIAGNOSES: - Allergy status to other drugs, medicaments and biological substances - Chest pain, unspecified - intermediate project manager (current) use of aspirin - intermediate project manager (current) use of oral hypoglycemic drugs - Nicotine dependence, unspecified, uncomplicated - Other manager long term care (current) drug therapy - Precordial pain - Schizophrenia, unspecified - Suicidal ideations 07/14/2024 20:49 [facility] [place] TYPE: Emergency COMPLAINT: - MEDICAL CLEARANCE DIAGNOSES: - Allergy status to other drugs, medicaments and biological substances - Auditory hallucinations - Depression, unspecified - intermediate project manager (current) use of insulin - intermediate project manager (current) use of oral hypoglycemic drugs - Long-term (current) use of injectable non-insulin antidiabetic drugs - Nicotine dependence, unspecified, uncomplicated - Other residential (current) drug therapy - Schizophrenia, unspecified 01/25/2024 18:36 [facility] [place] TYPE: Emergency COMPLAINT: - ALTERED LOC DIAGNOSES: - halfway (current) use of aspirin - halfway (current) use of insulin - halfway (current) use of oral hypoglycemic drugs - Long-term (current) use of injectable non-insulin antidiabetic drugs - Other manager long term care (current) drug therapy - Poisoning by benzodiazepines, accidental (unintentional), initial encounter - Somnolence - Transient alteration of awareness 11/20/2023 19:49 [facility] [place] TYPE: Emergency COMPLAINT: - MEDICAL CLEARANCE DIAGNOSES: - Allergy status to other drugs, medicaments and biological substances - Delusional disorders - Essential (primary) hypertension - intermediate project manager (current) use of insulin - halfway (current) use of oral hypoglycemic drugs - Nicotine dependence, unspecified, uncomplicated - Other residential (current) drug therapy - Schizophrenia, unspecified - Type 2 diabetes mellitus without complications INPATIENT VISIT TRACKING (12 MO.) 07/15/2024 12:36 [facility] [place] TYPE: Psychiatric Services DIAGNOSES: 0. [...] Hypo-osmolality and hyponatremia 2. Insomnia, unspecified 2. halfway (current) use of anticoagulants 2. intermediate project manager (current) use of insulin 2. intermediate project manager (current) use of oral hypoglycemic drugs 2. [...] 2. Type 2 diabetes mellitus without complications [email or web address]
[2024-10-05] MEDS ORDERED: LORazepam 2 MG/ML VIAL IM ONE (10:30)
[2024-10-05] MEDS ORDERED: droPERidol 5 MG/2 ML VIAL IM ONE (10:30)
[2024-10-05 10:35] LABS: BILIRUBIN, URINE NEGATIVE (negative); BLOOD/HGB, URINE NEGATIVE (Negative); KETONE, URINE NEGATIVE (Negative); LEUK ESTERASE, URINE NEGATIVE (negative); NITRITE, URINE NEGATIVE (negative); PH, URINE 6.5 (5-7)
[2024-10-05 10:35] LABS: BASOPHILS 0.5 % (0.2-1.2); EOSINOPHILS 0.2 % (0.8-7.0); HEMATOCRIT 40.1 % (40.1-51.0); HEMOGLOBIN 13.4 g/dL (13.7-17.5); LYMPHOCYTES 25.5 % (21.8-53.1); MCH 27.9 PG (25.7-32.2); MCHC 33.4 g/dL (32.3-36.5); MCV 83.4 fL (79.0-92.2); MONOCYTES 11.3 % (5.3-12.2); NEUTROPHILS 62.2 % (34.0-67.9); PLATELET COUNT 201 K/uL (163-337); RBC 4.81 M/uL (4.63-6.08)
[2024-10-05 10:41] LABS: BACTERIA, URINE NONE SEEN /hpf (negative); CASTS, URINE NONE SEEN \\lpf; COLLECTION TYPE, URINE CLEAN CATCH; CRYSTALS, URINE NONE SEEN (0-1+); EPITHELIAL CELLS, URINE 0 /lpf (0-1+); RED BLOOD CELLS, URINE 0-1 /hpf (0-5); REFLEX CULTURE, URINE No (No); WHITE BLOOD CELLS, URINE 0-1 /HPF (0-5)
[2024-10-05 10:55] LABS: AMPHETAMINES, URINE NEGATIVE (NEGATIVE); BENZODIAZEPINE, URINE NEGATIVE (NEGATIVE); BUPRENORPHINE, URINE NEGATIVE (NEGATIVE); CANNABINOID, URINE NEGATIVE (NEGATIVE); COCAINE, URINE NEGATIVE (NEGATIVE); ECSTASY, URINE NEGATIVE (NEGATIVE); FENTANYL, URINE NEGATIVE (NEGATIVE); METHADONE, URINE NEGATIVE (NEGATIVE); OPIATES, URINE NEGATIVE (NEGATIVE); OXYCODONE, URINE NEGATIVE (NEGATIVE); PHENCYCLIDINE, URINE NEGATIVE (NEGATIVE)
[2024-10-05 10:58] LABS: ACETAMINOPHEN 0 ug/mL (10-30); ALBUMIN/GLOBULIN RATIO 1.14 (1.1-2.4); ALCOHOL, MEDICAL <3 ng/dL (<3); ALKALINE PHOSPHATASE 128 U/L (46-116); ALT (SGPT) 49 U/L (14-59); ANION GAP 13.7 (7-21); AST (SGOT) 23 U/L (15-37); BILIRUBIN, TOTAL 0.5 mg/dL (0.2-1.0); BUN/CREATININE RATIO 12.65 (6.0-28.6); CALCIUM 9.4 mg/dL (8.5-10.1); CARBON DIOXIDE 26 mmol/L (21-32); CHLORIDE 94 mmol/L (98-107); CREATININE, SERUM 0.79 mg/dL (0.70-1.30); GLOMERULAR FILTRATION RATE,EST 107 mL/min (>60); POTASSIUM 4.7 mmol/L (3.5-5.1); PROTEIN, TOTAL 7.5 g/dL (6.4-8.2); SALICYLATE 1.1 mg/dL (2.8-20.0); TSH, 3RD GENERATION 1.419 uIU/mL (0.358-3.740); UREA NITROGEN 10 mg/dL (7-18)
[2024-10-05] MEDS ORDERED: Insulin Regular, Human 100 UNIT/ML ML SUB-Q ONE (11:30)
[2024-10-06] MEDS ORDERED: LORazepam 1 MG TAB PO ONE ×2 (03:00→19:45)
[2024-10-06] MEDS ORDERED: hydrOXYzine pamoate 25 MG CAP PO ONE ×2 (03:00→19:45)
[2024-10-06] MEDS ORDERED: OLANZapine 10 MG TABDIS PO PRN (08:30)
[2024-10-06] MEDS ORDERED: droPERidol 5 MG/2 ML VIAL IM ONE (13:00)
[2024-10-06] MEDS ORDERED: FLUPHENAZI25 MG/1 ML (14:11)
[2024-10-06] MEDS ORDERED: GABAPENTIN300 MG PO (14:12)
[2024-10-06] MEDS ORDERED: OLANZAPINE ODT10 MG PO (14:12)
[2024-10-06] MEDS ORDERED: OXCARBAZEPINE600 MG PO (14:12)
[2024-10-06] MEDS ORDERED: OXCARBAZEPINE300 MG PO (14:12)
[2024-10-06] MEDS ORDERED: CLONAZEPAM0.25 MG PO (14:12)
[2024-10-07] MEDS ORDERED: hydrOXYzine pamoate 25 MG CAP PO PRN (05:30)
[2024-10-07] MEDS ORDERED: Insulin Regular, Human 100 UNIT/ML ML SUB-Q SCH (07:00)
[2024-10-07] MEDS ORDERED: QUETIAPINE FUMARATE 100 MG TAB PO SCH (09:00)
[2024-10-07] MEDS ORDERED: ARIPiprazole 10 MG TAB PO SCH (09:00)
[2024-10-07] MEDS ORDERED: ACETAMINOPHEN 325 MG TAB PO ONE (10:00)
[2024-10-07] MEDS ORDERED: IBLOOD GLUCOSE TEST STRIP 1 EA TEST VI SCH (11:00)
[2024-10-07 16:38] LABS: CORONAVIRUS COVID-19 AG NEGATIVE (NEGATIVE)
[2024-10-07] MEDS ORDERED: TRAZODONE HCL 100 MG TAB PO SCH (21:00)
[2024-10-07] MEDS ORDERED: diazePAM 5 MG TAB PO ONE (23:30)
[2024-10-09] MEDS ORDERED: NICOTINE POLACRILEX 4 MG LOZENGE BUCCAL PRN (13:30)
[2024-10-09 16:35] LABS: BASOPHILS 0.5 % (0.2-1.2); EOSINOPHILS 0 % (0.8-7.0); HEMOGLOBIN 14.8 g/dL (13.7-17.5); LYMPHOCYTES 37.1 % (21.8-53.1); MCH 27.8 PG (25.7-32.2); MCHC 33.6 g/dL (32.3-36.5); MCV 82.7 fL (79.0-92.2); MONOCYTES 9.8 % (5.3-12.2); NEUTROPHILS 52.4 % (34.0-67.9); PLATELET COUNT 208 K/uL (163-337); RBC 5.32 M/uL (4.63-6.08)
[2024-10-09 16:51] LABS: ALBUMIN/GLOBULIN RATIO 1.14 (1.1-2.4); ANION GAP 11.1 (7-21); BILIRUBIN, TOTAL 0.6 mg/dL (0.2-1.0); BUN/CREATININE RATIO 15.94 (6.0-28.6); CALCIUM 9.9 mg/dL (8.5-10.1); CREATININE, SERUM 0.69 mg/dL (0.70-1.30); POTASSIUM 4.1 mmol/L (3.5-5.1); PROTEIN, TOTAL 7.5 g/dL (6.4-8.2)
[2024-10-09] MEDS ORDERED: MENTHOL/CETYLPYRD CL 1 LOZ LOZENGE PO PRN (23:30)
[2024-10-10 13:27] VITALS: BP 158/98
--- NOTE | 2024-10-10 22:13 | EKG ---
[facility] [address] [place] [id number] Signed Normal sinus rhythm Left axis deviation Minimal voltage criteria for LVH, may be normal variant ( [place] product ) Abnormal ECG When compared with ECG of 13-AUG-2024 12:43, No significant change was found Confirmed by Flor Powell MD () on 10/10/2024 10:13:23 PM Electronically Signed By: FLOR POWELL MD 10/10/24 2213 PATIENT NAME: BRUNO HEBERT Electrocardiogram DATE OF : 74 PHYSICIAN: FLOR POWELL MD REPORT #: [id number] REPORT IS CONFIDENTIAL AND NOT TO BE RELEASED WITHOUT AUTHORIZATION
== END 2024-10-10 13:27 ==
LOC: ED 09:48
PROVIDERS: Emergency Medicine
DX: F20.9 Schizophrenia, unspecified (principal); R73.9 Hyperglycemia, unspecified; F17.200 Nicotine dependence, unspecified, uncomplicated; Z88.8 Allergy status to other drugs, medicaments and biological substances; Z79.82 Long term (current) use of aspirin; Z79.899 Other long term (current) drug therapy
CPT/HCPCS: 36415; 80053; 80307; 81001; 84443; 85025; 96372; 99285; A9270; A9270-GY; G0480; J1790; J1815; J2060; Q0177; U0002